=== PATIENT | female | born 1935 | race Caucasian/White ===

== ENCOUNTER 2020-09-06 12:15 | Inpatient (IN) ==
[2020-09-06] MEDS ORDERED: Ondansetron 4 MG/2 ML VIAL IVP PRN (16:00)
[2020-09-06] MEDS ORDERED: Naloxone 0.4 MG/ML INJ IVP PRN (16:00)
[2020-09-06] MEDS ORDERED: 0.9 % Sodium Chloride 1,000 ML IVC ONE (16:13)
[2020-09-06] MEDS ORDERED: 0.9 % Sodium Chloride 1,000 ML IVC SCH (16:15)
[2020-09-06] MEDS ORDERED: Piperacillin/Tazobactam 3.375 GM in 0.9 % Sodium Chloride Mini Bag 100 ML IVPB SCH (16:30)
[2020-09-06] MEDS ORDERED: *HR* Dextrose 50 % in Water (Vial) 50 ML VIAL IVP PRN (16:40)
[2020-09-06] MEDS ORDERED: Dextrose Gel 15 GM/37.5 ML TUBE PO PRN ×2 (16:40)
[2020-09-06] MEDS ORDERED: D5% in Water 1,000 ML IVC PRN (16:40)
[2020-09-06] MEDS ORDERED: Vancomycin 1,750 MG/517.5 ML IV.SOLN IVPB SCH (17:00)
[2020-09-06] MEDS ORDERED: Vancomycin 1 EACH in 0.9 % Sodium Chloride 250 ML IVPB PRN (20:00)
[2020-09-06 21:05] LABS: Red Cell Distribution Width 15.2 % (11.5-14.5)
[2020-09-06 21:06] LABS: Hematocrit 37.5 % (35.3-44.9); Hemoglobin 11.5 g/dL (11.5-15.4); Immature Granulocytes % 9.7 % (0-4); Immature Platelets 9.5 % (1.1-6.1); Lymphocytes # 1.1 K/mcL (0.6-4.6); Lymphocytes % 2.1 %; Mean Corpuscular HGB Conc 30.7 g/dL (31.6-35.5); Mean Corpuscular Hemoglobin 27.5 pg (28.0-33.3); Mean Corpuscular Volume 89.7 fL (83.0-100.0); Mean Platelet Volume 11.7 fL (9.4-12.4); Monocytes # 2.2 K/mcL (0.0-1.3); Monocytes % 4.1 %; Platelet Count 118 K/mcL (140-400); Red Blood Count 4.18 M/mcL (3.82-4.97); Segmented Neutrophils % 84.1 %
[2020-09-06 21:07] LABS: Neutrophils # 45.8 K/mcL (1.6-8.9)
[2020-09-06 21:08] LABS: White Blood Count 54.4 K/mcL (4.3-11.1)
[2020-09-06 21:19] LABS: Calcium 7.4 mg/dL (8.6-10.3); Potassium 5.4 mEq/L (3.5-5.1)
[2020-09-06 21:51] LABS: Platelet Estimate Normal (Normal)
[2020-09-06 23:11] LABS: Adenovirus F 40/41 PCR Not detected (Not detect); Astrovirus PCR Not detected (Not detect); C.difficile Toxin A/B Gene PCR Not detected (Not detect); Campylobacter by PCR Not detected (Not detect); Cryptosporidium by PCR Not detected (Not detect); Cyclospora cayetanensis PCR Not detected (Not detect); E. coli O157 by PCR Not detected (Not detect); Entamoeba histolytica PCR Not detected (Not detect); Enteroaggregative E.coli(EAEC) Not detected (Not detect); Enteropathogenic E.coli(EPEC) Not detected (Not detect); Enterotoxigenic E.coli (ETEC) Not detected (Not detect); Giardia lamblia PCR Not detected (Not detect); Norovirus GI/GII PCR Not detected (Not detect); Plesiomonas shigelloides PCR Not detected (Not detect); Rotavirus A PCR Not detected (Not detect); Salmonella PCR Not detected (Not detect); Sapovirus PCR Not detected (Not detect); Shig/EnteroinvasiveE coli EIEC Not detected (Not detect); Shigalike tox-prod E coli STEC Not detected (Not detect); Vibrio PCR Not detected (Not detect); Vibrio cholerae PCR Not detected (Not detect); Yersinia enterocolitica PCR Not detected (Not detect)
[2020-09-07] MEDS ORDERED: SODIUM ZIRCONIUM CYCLOSILICATE 5 GM POWD.PACK PO SCH (00:45)
[2020-09-07 00:46] LABS: Hemoglobin 11.4 g/dL (11.5-15.4)
[2020-09-07 00:48] LABS: Hematocrit 37.1 % (35.3-44.9); Immature Platelets 8.8 % (1.1-6.1); Mean Corpuscular HGB Conc 30.7 g/dL (31.6-35.5); Mean Corpuscular Hemoglobin 27.9 pg (28.0-33.3); Mean Corpuscular Volume 90.9 fL (83.0-100.0); Platelet Count 109 K/mcL (140-400); Red Blood Count 4.08 M/mcL (3.82-4.97); Red Cell Distribution Width 15.3 % (11.5-14.5)
[2020-09-07 01:05] LABS: Calcium 7.4 mg/dL (8.6-10.3); Magnesium 1.3 mg/dL (1.6-2.6); Phosphorous 4.5 mg/dL (2.7-4.5); Potassium 5.1 mEq/L (3.5-5.1)
[2020-09-07 01:11] LABS: Bilirubin,Urine Large (Negative); Blood,Urine Large (Negative); Clarity,Urine Turbid (Clear); Color,Urine Red (Yellow); Glucose,Urine (UA) 100 mg/dL (Normal); Ketones,Urine 15 mg/dL (Negative); Leukocyte Esterase,Urine Large (Negative); Nitrite,Urine Positive (Negative); Protein,Urine >=300 mg/dL (Neg-Trace); Urobilinogen,Urine Normal (Normal)
[2020-09-07 01:17] LABS: White Blood Count 52.9 K/mcL (4.3-11.1)
[2020-09-07 01:18] LABS: Large Platelets Present (Not Present); Lymphocytes # 2.1 K/mcL (0.6-4.6); Monocytes # 1.1 K/mcL (0.0-1.3); Neutrophils # 48.7 K/mcL (1.6-8.9); Platelet Estimate Slight Decrease (Normal)
[2020-09-07] MEDS: Calcium Gluconate 1gm/50mL 1 GM/50 ML BAG IVPB SCH ×2 (01:30→02:20)
[2020-09-07] MEDS: Sodium Bicarbonate 75 MEQ in 0.45 % Sodium Chloride 1,000 ML IVC SCH ×3 (01:33→16:59)
[2020-09-07 01:36] LABS: Bacteria,Urine Present per hpf (None-Few); Hyaline Casts,Urine Present per lpf (None Seen); RBC,Urine TNTC per hpf (0-3); Squamous Epithelial Cell,Urine Present per hpf (None-Few); WBC,Urine TNTC per hpf (0-3)
[2020-09-07] MEDS: Piperacillin/Tazobactam 3.375 GM in 0.9 % Sodium Chloride Mini Bag 100 ML IVPB SCH ×2 (06:57→16:59)
[2020-09-07 15:33] LABS: Uric Acid 9.3 mg/dL (2.3-7.6)
[2020-09-07 21:47] LABS: Sodium, Urine 78.5 mEq/L
[2020-09-08] MEDS: Sodium Bicarbonate 75 MEQ in 0.45 % Sodium Chloride 1,000 ML IVC SCH ×3 (02:21→16:27)
[2020-09-08 04:33] LABS: Creatine Kinase 5364 Units/L (30-223); Vancomycin,Random 16 mcg/mL
[2020-09-08] MEDS: Piperacillin/Tazobactam 3.375 GM in 0.9 % Sodium Chloride Mini Bag 100 ML IVPB SCH ×2 (04:55→17:05)
[2020-09-08 07:14] LABS: Hematocrit 33.3 % (35.3-44.9); Hemoglobin 10.7 g/dL (11.5-15.4); Immature Platelets 9.2 % (1.1-6.1); Mean Corpuscular HGB Conc 32.1 g/dL (31.6-35.5); Mean Corpuscular Hemoglobin 28.1 pg (28.0-33.3); Mean Corpuscular Volume 87.4 fL (83.0-100.0); Mean Platelet Volume 12.2 fL (9.4-12.4); Platelet Count 106 K/mcL (140-400); Red Blood Count 3.81 M/mcL (3.82-4.97); Red Cell Distribution Width 15.4 % (11.5-14.5)
[2020-09-08 07:23] LABS: VBG Ionized Calcium 0.95 mmol/L (1.15-1.35)
[2020-09-08 07:26] LABS: White Blood Count 52.2 K/mcL (4.3-11.1)
[2020-09-08 07:56] LABS: Magnesium 1.8 mg/dL (1.6-2.6); Phosphorous 4.6 mg/dL (2.7-4.5)
[2020-09-08] MEDS ORDERED: Vancomycin 500 MG in 0.9 % Sodium Chloride Mini Bag 100 ML IVPB ONE (08:00)
[2020-09-08 08:06] LABS: Calcium 7.6 mg/dL (8.6-10.3); Potassium 4.5 mEq/L (3.5-5.1)
[2020-09-08 08:13] LABS: Lymphocytes # 2.6 K/mcL (0.6-4.6); Neutrophils # 48.6 K/mcL (1.6-8.9); Platelet Estimate Decreased (Normal)
[2020-09-09] MEDS: Sodium Bicarbonate 75 MEQ in 0.45 % Sodium Chloride 1,000 ML IVC SCH ×4 (00:28→22:42)
[2020-09-09 01:50] LABS: Basophils % 0.2 %; Eosinophils % 0.2 %
[2020-09-09 01:52] LABS: Basophils # 0.1 K/mcL (0.0-0.2); Eosinophils # 0.1 K/mcL (0.0-0.6); Hematocrit 30.4 % (35.3-44.9); Hemoglobin 9.8 g/dL (11.5-15.4); Immature Granulocytes % 0.8 % (0-4); Lymphocytes # 2.2 K/mcL (0.6-4.6); Mean Corpuscular HGB Conc 32.2 g/dL (31.6-35.5); Mean Corpuscular Hemoglobin 27.8 pg (28.0-33.3); Mean Corpuscular Volume 86.4 fL (83.0-100.0); Mean Platelet Volume 11.5 fL (9.4-12.4); Monocytes # 1.2 K/mcL (0.0-1.3); Monocytes % 2.8 %; Platelet Count 106 K/mcL (140-400); Red Blood Count 3.52 M/mcL (3.82-4.97); Red Cell Distribution Width 15.5 % (11.5-14.5)
[2020-09-09 01:59] LABS: Neutrophils # 39.2 K/mcL (1.6-8.9)
[2020-09-09 02:01] LABS: White Blood Count 43.1 K/mcL (4.3-11.1)
[2020-09-09 02:12] LABS: Calcium 7.1 mg/dL (8.6-10.3); Magnesium 1.7 mg/dL (1.6-2.6); Phosphorous 4.2 mg/dL (2.7-4.5); Potassium 4.3 mEq/L (3.5-5.1)
[2020-09-09 05:23] LABS: Platelet Estimate Slight Decrease (Normal)
[2020-09-09] MEDS: Piperacillin/Tazobactam 3.375 GM in 0.9 % Sodium Chloride Mini Bag 100 ML IVPB SCH ×2 (05:41→16:43)
[2020-09-09] MEDS ORDERED: Vancomycin 500 MG in 0.9 % Sodium Chloride Mini Bag 100 ML IVPB ONE (08:00)
[2020-09-10 03:15] LABS: VBG Ionized Calcium 0.89 mmol/L (1.15-1.35)
[2020-09-10 03:17] LABS: Basophils % 0.2 %; Hemoglobin 8.9 g/dL (11.5-15.4); Red Cell Distribution Width 15.1 % (11.5-14.5)
[2020-09-10 03:19] LABS: Eosinophils # 0.5 K/mcL (0.0-0.6); Hematocrit 27.6 % (35.3-44.9); Immature Granulocytes % 1.2 % (0-4); Immature Platelets 6.6 % (1.1-6.1); Lymphocytes # 2.4 K/mcL (0.6-4.6); Lymphocytes % 14.5 %; Mean Corpuscular HGB Conc 32.2 g/dL (31.6-35.5); Mean Corpuscular Hemoglobin 27.3 pg (28.0-33.3); Mean Corpuscular Volume 84.7 fL (83.0-100.0); Mean Platelet Volume 11.1 fL (9.4-12.4); Monocytes # 1.2 K/mcL (0.0-1.3); Monocytes % 7.3 %; Neutrophils # 12.4 K/mcL (1.6-8.9); Nucleated Red Blood Cells 0.2 /100 WBC (0); Red Blood Count 3.26 M/mcL (3.82-4.97); Segmented Neutrophils % 73.8 %; White Blood Count 16.8 K/mcL (4.3-11.1)
[2020-09-10 03:23] LABS: Platelet Count 98 K/mcL (140-400)
[2020-09-10 03:30] LABS: Calcium 6.4 mg/dL (8.6-10.3); Magnesium 1.5 mg/dL (1.6-2.6); Potassium 3.5 mEq/L (3.5-5.1)
[2020-09-10] MEDS: Sodium Bicarbonate 75 MEQ in 0.45 % Sodium Chloride 1,000 ML IVC SCH (06:04)
[2020-09-10] MEDS: Piperacillin/Tazobactam 3.375 GM in 0.9 % Sodium Chloride Mini Bag 100 ML IVPB SCH ×2 (06:11→17:51)
[2020-09-10] MEDS ORDERED: Vancomycin 500 MG in 0.9 % Sodium Chloride Mini Bag 100 ML IVPB ONE (08:00)
[2020-09-10 09:10] LABS: Immature Platelets 8.5 % (1.1-6.1); Mean Corpuscular Volume 84.8 fL (83.0-100.0)
[2020-09-10 09:12] LABS: INR 1.2; Prothrombin Time 14.3 Seconds (9.4-12.1)
[2020-09-10 09:15] LABS: Basophils # 0.1 K/mcL (0.0-0.2); Basophils % 0.3 %; Eosinophils # 0.6 K/mcL (0.0-0.6); Eosinophils % 3.3 %; Hematocrit 32.4 % (35.3-44.9); Hemoglobin 10.3 g/dL (11.5-15.4); Immature Granulocytes % 1.7 % (0-4); Lymphocytes # 3.1 K/mcL (0.6-4.6); Lymphocytes % 16.3 %; Mean Corpuscular HGB Conc 31.8 g/dL (31.6-35.5); Mean Platelet Volume 12.1 fL (9.4-12.4); Monocytes # 1.6 K/mcL (0.0-1.3); Monocytes % 8.3 %; Neutrophils # 13.1 K/mcL (1.6-8.9); Nucleated Red Blood Cells 0.1 /100 WBC (0); Platelet Count 114 K/mcL (140-400); Red Blood Count 3.82 M/mcL (3.82-4.97); Red Cell Distribution Width 15.4 % (11.5-14.5); Segmented Neutrophils % 70.1 %; White Blood Count 18.7 K/mcL (4.3-11.1)
[2020-09-10] MEDS ORDERED: SODIUM CHLORIDE 0.9% IVPB ONE (10:02)
[2020-09-10] MEDS ORDERED: DESMOPRESSIN ACETATE IVPB ONE (10:02)
[2020-09-10] MEDS ORDERED: 0.9 % Sodium Chloride 1,000 ML ONE ×2 (10:04→15:40)
[2020-09-10] MEDS ORDERED: 0.9 % Sodium Chloride 250 ML ONE (10:17)
[2020-09-10] MEDS ORDERED: *HR* Rocuronium Bromide 50 MG/5 ML VIAL ONE (10:24)
[2020-09-10] MEDS ORDERED: EPHEDrine 50 MG/ML VIAL ONE (10:25)
[2020-09-10] MEDS ORDERED: *HR* Midazolam HCl 2 MG/2 ML VIAL ONE (10:27)
[2020-09-10] MEDS ORDERED: Tranexamic Acid 1,000 MG/10 ML VIAL ONE (10:38)
[2020-09-10] MEDS ORDERED: Oxymetazoline Nasal SPRAY BOTTLE NS ONE (10:47)
[2020-09-10] MEDS ORDERED: Lidocaine/EPI 1:100k 1% 50 ML VIAL ONE (10:47)
[2020-09-10] MEDS ORDERED: *HR* EPINEPHrine 30 MG/30 ML MDV ONE (10:47)
[2020-09-10 10:59] LABS: Fibrinogen 432 mg/dL (169-393)
[2020-09-10 11:00] LABS: D-Dimer 3664 ng/mLFEU (0-500)
[2020-09-10] MEDS ORDERED: *HR* Midazolam HCl 5 MG/5 ML VIAL IVP ONE (11:48)
[2020-09-10] MEDS ORDERED: *HR* Etomidate 20 MG/10 ML AMPUL IVP ONE (11:48)
[2020-09-10 12:58] LABS: ABG Base Excess -2 mEq/L (-2 to 3); ABG Chloride 108 mEq/L (98-107); ABG Glucose 119 mg/dL (60-95); ABG HCO3 22 mEq/L (21-27); ABG Ionized Calcium 0.99 mmol/L (1.15-1.35); ABG Oxygen Saturation 91 % (95-98); ABG PCO2 33 mmHg (35-45); ABG PH 7.43 pH Units (7.32-7.45); ABG PO2 58 mmHg (85-104); ABG TCO2 23 mEq/L (20-26)
[2020-09-10] MEDS ORDERED: *HR* FentaNYL (PF) 100 MCG/2 ML VIAL ONE (13:07)
[2020-09-10] MEDS ORDERED: Artificial Tears SOLN 15 ML BOTTLE BOTH EYES PRN (13:22)
[2020-09-10] MEDS: FentaNYL (PF) 1,000 MCG/100 ML IV.SOLN IVC SCH (13:45)
[2020-09-10] MEDS: 0.9 % Sodium Chloride 1,000 ML IVC SCH (14:08)
[2020-09-10] MEDS: Calcium Gluconate 1gm/50mL 1 GM/50 ML BAG IVPB SCH ×2 (14:08→14:37)
[2020-09-10 14:15] LABS: VBG Ionized Calcium 0.91 mmol/L (1.15-1.35)
[2020-09-10 14:28] LABS: Basophils % 0.2 %; Eosinophils # 0.4 K/mcL (0.0-0.6); Eosinophils % 2.1 %; Hematocrit 30.4 % (35.3-44.9); Hemoglobin 10.2 g/dL (11.5-15.4); Immature Granulocytes % 3.4 % (0-4); Lymphocytes # 2.8 K/mcL (0.6-4.6); Lymphocytes % 14.9 %; Mean Corpuscular HGB Conc 33.6 g/dL (31.6-35.5); Mean Corpuscular Hemoglobin 28.7 pg (28.0-33.3); Mean Corpuscular Volume 85.4 fL (83.0-100.0); Mean Platelet Volume 12.1 fL (9.4-12.4); Monocytes % 10.6 %; Neutrophils # 12.9 K/mcL (1.6-8.9); Nucleated Red Blood Cells 0.1 /100 WBC (0); Platelet Count 102 K/mcL (140-400); Red Blood Count 3.56 M/mcL (3.82-4.97); Red Cell Distribution Width 14.6 % (11.5-14.5); Segmented Neutrophils % 68.8 %; White Blood Count 18.8 K/mcL (4.3-11.1)
[2020-09-10 14:33] LABS: Albumin 2.3 g/dL (3.5-5.7); Bilirubin,Direct 0.1 mg/dL (0.0-0.2); Bilirubin,Indirect 0.6 mg/dL (0.0-1.0); Bilirubin,Total 0.7 mg/dL (0.3-1.0); Calcium 7.1 mg/dL (8.6-10.3); Globulin 2.2 g/dL (2.4-3.5); Magnesium 1.6 mg/dL (1.6-2.6); Phosphorous 4.5 mg/dL (2.7-4.5); Potassium 3.7 mEq/L (3.5-5.1); Total Protein 4.5 g/dL (6.4-8.9)
[2020-09-10 14:36] LABS: INR 1.3; Prothrombin Time 15.3 Seconds (9.4-12.1)
[2020-09-10 14:44] LABS: Activated Partial Thrombo Time 18.9 Seconds (26.0-36.0)
[2020-09-10] MEDS: Norepinephrine 4 MG/254 ML IV.SOLN IVC SCH ×2 (15:51→22:50)
[2020-09-10] MEDS: Artificial Tears SOLN 15 ML BOTTLE BOTH EYES SCH ×3 (16:55→23:52)
[2020-09-10 16:59] LABS: ABG Base Excess -4 mEq/L (-2 to 3); ABG HCO3 23 mEq/L (21-27); ABG Oxygen Saturation 92 % (95-98); ABG PCO2 49 mmHg (35-45); ABG PH 7.28 pH Units (7.32-7.45); ABG PO2 74 mmHg (85-104); ABG TCO2 25 mEq/L (20-26); Blood Gas Modality ASSIST CONTROL; Blood Gas VT 400 cc
[2020-09-10] MEDS: Oxymetazoline Nasal SPRAY BOTTLE NS PRN ×3 (17:50→22:51)
[2020-09-10] MEDS: Oxymetazoline Nasal SPRAY BOTTLE NS SCH ×2 (17:51→23:52)
[2020-09-10] MEDS ORDERED: Famotidine 20 MG/2 ML VIAL IVP SCH (18:00)
[2020-09-10 20:06] LABS: VBG Ionized Calcium 1.02 mmol/L (1.15-1.35)
[2020-09-10] MEDS: Chlorhexidine Rinse 15 ML MOUTHWASH MM SCH (20:11)
[2020-09-10 20:16] LABS: Basophils # 0.1 K/mcL (0.0-0.2); Basophils % 0.5 %; Eosinophils # 0.5 K/mcL (0.0-0.6); Eosinophils % 2.3 %; Hematocrit 29.8 % (35.3-44.9); Hemoglobin 9.5 g/dL (11.5-15.4); Immature Granulocytes % 4.8 % (0-4); Lymphocytes # 3.2 K/mcL (0.6-4.6); Lymphocytes % 15.9 %; Mean Corpuscular HGB Conc 31.9 g/dL (31.6-35.5); Mean Corpuscular Hemoglobin 27.4 pg (28.0-33.3); Mean Corpuscular Volume 85.9 fL (83.0-100.0); Mean Platelet Volume 11.8 fL (9.4-12.4); Monocytes # 2.2 K/mcL (0.0-1.3); Monocytes % 10.9 %; Neutrophils # 13.4 K/mcL (1.6-8.9); Nucleated Red Blood Cells 0.1 /100 WBC (0); Platelet Count 110 K/mcL (140-400); Red Blood Count 3.47 M/mcL (3.82-4.97); Segmented Neutrophils % 65.6 %; White Blood Count 20.4 K/mcL (4.3-11.1)
[2020-09-10 20:28] LABS: Calcium 7.1 mg/dL (8.6-10.3); Potassium 3.9 mEq/L (3.5-5.1)
[2020-09-10] MEDS: Calcium Gluconate 1gm/50mL 1 GM/50 ML BAG IVPB PRN (21:47)
[2020-09-11 02:21] LABS: Basophils # 0.1 K/mcL (0.0-0.2); Basophils % 0.5 %; Eosinophils # 0.6 K/mcL (0.0-0.6); Hematocrit 29.8 % (35.3-44.9); Hemoglobin 9.5 g/dL (11.5-15.4); Lymphocytes # 3.5 K/mcL (0.6-4.6); Lymphocytes % 16.9 %; Mean Corpuscular HGB Conc 31.9 g/dL (31.6-35.5); Mean Corpuscular Volume 87.9 fL (83.0-100.0); Mean Platelet Volume 11.9 fL (9.4-12.4); Monocytes # 2.4 K/mcL (0.0-1.3); Monocytes % 11.4 %; Neutrophils # 12.9 K/mcL (1.6-8.9); Nucleated Red Blood Cells 0.1 /100 WBC (0); Platelet Count 125 K/mcL (140-400); Red Blood Count 3.39 M/mcL (3.82-4.97); Red Cell Distribution Width 15.3 % (11.5-14.5); Segmented Neutrophils % 62.2 %; White Blood Count 20.8 K/mcL (4.3-11.1)
[2020-09-11] MEDS: FentaNYL (PF) 1,000 MCG/100 ML IV.SOLN IVC SCH ×2 (02:36→15:55)
[2020-09-11] MEDS: 0.9 % Sodium Chloride 1,000 ML IVC SCH ×2 (02:40→16:40)
[2020-09-11 02:41] LABS: ABG Ionized Calcium 1.05 mmol/L (1.15-1.35)
[2020-09-11 02:43] LABS: Calcium 7.4 mg/dL (8.6-10.3); Phosphorous 5.9 mg/dL (2.7-4.5); Potassium 4.2 mEq/L (3.5-5.1)
[2020-09-11] MEDS: Norepinephrine 4 MG/254 ML IV.SOLN IVC SCH ×5 (03:18→22:01)
[2020-09-11] MEDS: Artificial Tears SOLN 15 ML BOTTLE BOTH EYES SCH ×6 (03:19→23:25)
[2020-09-11 03:49] LABS: ABG Base Excess -8 mEq/L (-2 to 3); ABG HCO3 20 mEq/L (21-27); ABG Oxygen Saturation 97 % (95-98); ABG PCO2 46 mmHg (35-45); ABG PH 7.24 pH Units (7.32-7.45); ABG PO2 112 mmHg (85-104); ABG TCO2 21 mEq/L (20-26); Blood Gas Modality AF; Blood Gas VT 400 cc
[2020-09-11] MEDS: Calcium Gluconate 1gm/50mL 1 GM/50 ML BAG IVPB PRN ×2 (04:12→18:29)
[2020-09-11] MEDS: Piperacillin/Tazobactam 3.375 GM in 0.9 % Sodium Chloride Mini Bag 100 ML IVPB SCH ×2 (05:22→17:58)
[2020-09-11] MEDS: Pantoprazole 40 MG VIAL IVP SCH ×2 (05:23→17:58)
[2020-09-11] MEDS: Oxymetazoline Nasal SPRAY BOTTLE NS SCH ×4 (05:24→23:39)
[2020-09-11] MEDS: Vancomycin 500 MG in 0.9 % Sodium Chloride Mini Bag 100 ML IVPB SCH (08:49)
[2020-09-11] MEDS: Chlorhexidine Rinse 15 ML MOUTHWASH MM SCH ×2 (08:49→20:39)
[2020-09-11] MEDS: Sodium Bicarbonate 75 MEQ in 0.45 % Sodium Chloride 1,000 ML IVC SCH (09:27)
[2020-09-11 11:23] LABS: Basophils # 0.1 K/mcL (0.0-0.2); Basophils % 0.4 %; Eosinophils # 0.6 K/mcL (0.0-0.6); Hematocrit 27.9 % (35.3-44.9); Hemoglobin 8.8 g/dL (11.5-15.4); Immature Granulocytes % 4.6 % (0-4); Lymphocytes # 2.7 K/mcL (0.6-4.6); Lymphocytes % 13.5 %; Mean Corpuscular HGB Conc 31.5 g/dL (31.6-35.5); Mean Corpuscular Hemoglobin 27.9 pg (28.0-33.3); Mean Corpuscular Volume 88.6 fL (83.0-100.0); Mean Platelet Volume 11.3 fL (9.4-12.4); Monocytes # 2.4 K/mcL (0.0-1.3); Neutrophils # 13.4 K/mcL (1.6-8.9); Platelet Count 130 K/mcL (140-400); Red Blood Count 3.15 M/mcL (3.82-4.97); Red Cell Distribution Width 15.6 % (11.5-14.5); Segmented Neutrophils % 66.5 %; White Blood Count 20.1 K/mcL (4.3-11.1)
[2020-09-11 11:26] LABS: ABG Ionized Calcium 1.03 mmol/L (1.15-1.35)
[2020-09-11 11:57] LABS: % Iron Saturation 13 % (15-50); Iron 28 mcg/dL (50-170); Lactate Dehydrogenase 175 Units/L (140-271); Transferrin 151 mg/dL (203-362)
[2020-09-11 12:01] LABS: Ferritin 186 ng/mL (10-120)
[2020-09-11 12:06] LABS: Folate 12.8 ng/mL (3.0-16.0)
[2020-09-11 12:36] LABS: Vitamin B12 > 1500 pg/mL (250-1100)
[2020-09-11 15:37] LABS: Hematocrit 28.7 % (35.3-44.9)
[2020-09-11 15:49] LABS: ABG Ionized Calcium 1.07 mmol/L (1.15-1.35)
[2020-09-11 15:56] LABS: Calcium 7.6 mg/dL (8.6-10.3); Magnesium 2.1 mg/dL (1.6-2.6); Phosphorous 6.4 mg/dL (2.7-4.5); Potassium 4.3 mEq/L (3.5-5.1)
[2020-09-11 21:52] LABS: Hematocrit 27.5 % (35.3-44.9); Hemoglobin 8.7 g/dL (11.5-15.4)
[2020-09-11] MEDS: Vasopressin 40 UNIT in D5% in Water 100 ML IVC SCH (22:03)
[2020-09-11] MEDS: Oxymetazoline Nasal SPRAY BOTTLE NS PRN (23:26)
[2020-09-12] MEDS: FentaNYL (PF) 1,000 MCG/100 ML IV.SOLN IVC SCH ×3 (01:55→21:06)
[2020-09-12] MEDS: Artificial Tears SOLN 15 ML BOTTLE BOTH EYES SCH ×6 (03:16→23:05)
[2020-09-12] MEDS: Norepinephrine 4 MG/254 ML IV.SOLN IVC SCH ×4 (03:29→20:12)
[2020-09-12 03:44] LABS: Basophils # 0.1 K/mcL (0.0-0.2); Basophils % 0.5 %; Eosinophils # 0.8 K/mcL (0.0-0.6); Eosinophils % 3.5 %; Hematocrit 27.9 % (35.3-44.9); Hemoglobin 8.6 g/dL (11.5-15.4); Immature Granulocytes % 4.6 % (0-4); Lymphocytes # 2.9 K/mcL (0.6-4.6); Lymphocytes % 12.6 %; Mean Corpuscular HGB Conc 30.8 g/dL (31.6-35.5); Mean Corpuscular Hemoglobin 27.8 pg (28.0-33.3); Mean Corpuscular Volume 90.3 fL (83.0-100.0); Mean Platelet Volume 11.6 fL (9.4-12.4); Monocytes # 2.5 K/mcL (0.0-1.3); Monocytes % 10.8 %; Neutrophils # 15.8 K/mcL (1.6-8.9); Platelet Count 151 K/mcL (140-400); Red Blood Count 3.09 M/mcL (3.82-4.97); Red Cell Distribution Width 15.9 % (11.5-14.5); White Blood Count 23.2 K/mcL (4.3-11.1)
[2020-09-12 03:57] LABS: INR 1.2; Phosphorous 6.8 mg/dL (2.7-4.5); Prothrombin Time 13.8 Seconds (9.4-12.1)
[2020-09-12 03:59] LABS: Activated Partial Thrombo Time 21.7 Seconds (26.0-36.0); Albumin 2.4 g/dL (3.5-5.7); Bilirubin,Direct 0.2 mg/dL (0.0-0.2); Bilirubin,Indirect 0.2 mg/dL (0.0-1.0); Bilirubin,Total 0.4 mg/dL (0.3-1.0); Calcium 7.7 mg/dL (8.6-10.3); Globulin 2.3 g/dL (2.4-3.5); Potassium 4.3 mEq/L (3.5-5.1); Total Protein 4.7 g/dL (6.4-8.9)
[2020-09-12 04:41] LABS: ABG Base Excess -11 mEq/L (-2 to 3); ABG HCO3 16 mEq/L (21-27); ABG Oxygen Saturation 99 % (95-98); ABG PCO2 38 mmHg (35-45); ABG PH 7.22 pH Units (7.32-7.45); ABG PO2 157 mmHg (85-104); ABG TCO2 17 mEq/L (20-26); Blood Gas VT 400 cc
[2020-09-12] MEDS: Piperacillin/Tazobactam 3.375 GM in 0.9 % Sodium Chloride Mini Bag 100 ML IVPB SCH ×2 (05:04→17:00)
[2020-09-12] MEDS: Pantoprazole 40 MG VIAL IVP SCH ×2 (05:04→17:00)
[2020-09-12] MEDS: 0.9 % Sodium Chloride 1,000 ML IVC SCH (07:33)
[2020-09-12] MEDS: Vancomycin 500 MG in 0.9 % Sodium Chloride Mini Bag 100 ML IVPB SCH (07:39)
[2020-09-12] MEDS: Chlorhexidine Rinse 15 ML MOUTHWASH MM SCH ×2 (07:39→20:13)
[2020-09-12] MEDS ORDERED: Heparin 1,000 UNITS/500 mL 500 ML ONE (09:15)
[2020-09-12] MEDS: Budesonide/Formoterol 160/4.5 1 PUFF INH IH SCH ×2 (09:34→21:37)
[2020-09-12] MEDS ORDERED: *HR* Heparin 5,000 UNIT/ML VIAL ONE (10:53)
[2020-09-12] MEDS ORDERED: *HR* Heparin 5,000 UNIT/ML VIAL IVP PRN ×2 (11:39→12:35)
[2020-09-12 13:19] LABS: Hepatitis B Surface Antibody < 3.10 mIU/mL
[2020-09-12 13:30] LABS: Hepatitis B Surface Antigen Nonreactive (Nonreactive)
[2020-09-12] MEDS: PrismaSATE BGK 4/2.5 5,000 ML CRRT SCH ×6 (14:52→23:05)
[2020-09-12] MEDS: Vasopressin 40 UNIT in D5% in Water 100 ML IVC SCH (18:16)
[2020-09-12] MEDS ORDERED: 0.9 % Sodium Chloride 1,000 ML ONE (18:57)
[2020-09-13] MEDS: PrismaSATE BGK 4/2.5 5,000 ML CRRT SCH ×11 (00:33→23:48)
[2020-09-13] MEDS: Norepinephrine 4 MG/254 ML IV.SOLN IVC SCH ×3 (01:12→14:00)
[2020-09-13] MEDS: Piperacillin/Tazobactam 3.375 GM in 0.9 % Sodium Chloride Mini Bag 100 ML IVPB SCH ×3 (01:13→18:00)
[2020-09-13 03:22] LABS: Basophils % 0.2 %; Eosinophils # 0.5 K/mcL (0.0-0.6); Eosinophils % 2.8 %; Hemoglobin 7.7 g/dL (11.5-15.4); Immature Granulocytes % 3.1 % (0-4); Lymphocytes # 1.4 K/mcL (0.6-4.6); Lymphocytes % 8.3 %; Mean Corpuscular HGB Conc 32.1 g/dL (31.6-35.5); Mean Corpuscular Hemoglobin 28.2 pg (28.0-33.3); Mean Corpuscular Volume 87.9 fL (83.0-100.0); Mean Platelet Volume 10.9 fL (9.4-12.4); Monocytes # 1.3 K/mcL (0.0-1.3); Monocytes % 7.8 %; Neutrophils # 12.9 K/mcL (1.6-8.9); Platelet Count 148 K/mcL (140-400); Red Blood Count 2.73 M/mcL (3.82-4.97); Red Cell Distribution Width 15.8 % (11.5-14.5); Segmented Neutrophils % 77.8 %; White Blood Count 16.6 K/mcL (4.3-11.1)
[2020-09-13] MEDS: Artificial Tears SOLN 15 ML BOTTLE BOTH EYES SCH ×6 (03:30→23:22)
[2020-09-13 03:33] LABS: VBG Ionized Calcium 1.06 mmol/L (1.15-1.35)
[2020-09-13 03:41] LABS: Calcium 7.3 mg/dL (8.6-10.3); Potassium 4.2 mEq/L (3.5-5.1)
[2020-09-13 03:42] LABS: Phosphorous 4.3 mg/dL (2.7-4.5)
[2020-09-13] MEDS: Calcium Gluconate 1gm/50mL 1 GM/50 ML BAG IVPB PRN ×5 (04:10→22:22)
[2020-09-13] MEDS ORDERED: Calcium Gluconate 1gm/50mL 1 GM/50 ML BAG IVPB ONE (04:57)
[2020-09-13 04:58] LABS: ABG Base Excess -3 mEq/L (-2 to 3); ABG HCO3 22 mEq/L (21-27); ABG Oxygen Saturation 99 % (95-98); ABG PCO2 43 mmHg (35-45); ABG PH 7.33 pH Units (7.32-7.45); ABG PO2 154 mmHg (85-104); ABG TCO2 24 mEq/L (20-26); Blood Gas Modality ASSIST CONTROL; Blood Gas VT 400 cc
[2020-09-13] MEDS: Pantoprazole 40 MG VIAL IVP SCH ×2 (05:10→18:09)
[2020-09-13] MEDS ORDERED: 0.9 % Sodium Chloride 2,000 ML ONE ×3 (06:33→20:11)
[2020-09-13] MEDS ORDERED: 0.9 % Sodium Chloride 1,000 ML ONE (06:50)
[2020-09-13 07:00] LABS: Albumin 2.3 g/dL (3.5-5.7); Calcium 7.9 mg/dL (8.6-10.3); Phosphorous 3.8 mg/dL (2.7-4.5); Potassium 4.3 mEq/L (3.5-5.1)
[2020-09-13] MEDS: Budesonide/Formoterol 160/4.5 1 PUFF INH IH SCH ×2 (07:22→19:45)
[2020-09-13] MEDS: Chlorhexidine Rinse 15 ML MOUTHWASH MM SCH ×2 (07:57→21:25)
[2020-09-13] MEDS: FentaNYL (PF) 1,000 MCG/100 ML IV.SOLN IVC SCH ×2 (08:00→18:50)
[2020-09-13] MEDS ORDERED: Calcium Gluconate 1gm/50mL 1 GM/50 ML BAG IVPB PRN (08:47)
[2020-09-13] MEDS ORDERED: PrismaSATE BGK 2/0 5,000 ML CRRT SCH ×2 (09:00)
[2020-09-13] MEDS: Albumin 25% 25gram/100mL 25 GM/100 ML IV.SOLN IVPB SCH ×4 (10:34→14:00)
[2020-09-13] MEDS ORDERED: Albumin 25% 25gram/100mL 50 GM/200 ML IV.SOLN ONE (12:17)
[2020-09-13] MEDS: PrismaSATE BGK 2/0 5,000 ML CRRT SCH ×6 (12:40→23:09)
[2020-09-13] MEDS: Calcium Chloride 4,000 MG in 0.9 % Sodium Chloride 1,000 ML CRRT SCH (12:41)
[2020-09-13 12:48] LABS: VBG Ionized Calcium 1.02 mmol/L (1.15-1.35)
[2020-09-13 12:55] LABS: INR 1.2; Prothrombin Time 13.9 Seconds (9.4-12.1)
[2020-09-13 12:58] LABS: Activated Partial Thrombo Time 22.8 Seconds (26.0-36.0)
[2020-09-13 14:54] LABS: VBG Ionized Calcium 0.83 mmol/L (1.15-1.35)
[2020-09-13 17:44] LABS: VBG Ionized Calcium 0.88 mmol/L (1.15-1.35)
[2020-09-13] MEDS: Norepinephrine 8 MG in 0.9 % Sodium Chloride 250 ML IVC SCH (19:33)
[2020-09-13] MEDS: Vasopressin 40 UNIT in D5% in Water 100 ML IVC SCH (19:50)
[2020-09-13 19:59] LABS: VBG Ionized Calcium 0.82 mmol/L (1.15-1.35)
[2020-09-13 23:51] LABS: VBG Ionized Calcium 0.85 mmol/L (1.15-1.35)
[2020-09-14] MEDS: Calcium Gluconate 1gm/50mL 1 GM/50 ML BAG IVPB PRN ×4 (00:13→21:09)
[2020-09-14] MEDS: PrismaSATE BGK 2/0 5,000 ML CRRT SCH ×10 (01:35→22:55)
[2020-09-14] MEDS ORDERED: 0.9 % Sodium Chloride 2,000 ML ONE (01:48)
[2020-09-14] MEDS: Piperacillin/Tazobactam 3.375 GM in 0.9 % Sodium Chloride Mini Bag 100 ML IVPB SCH ×3 (02:06→17:19)
[2020-09-14 02:21] LABS: VBG Ionized Calcium 1.11 mmol/L (1.15-1.35)
[2020-09-14] MEDS: Calcium Chloride 4,000 MG in 0.9 % Sodium Chloride 1,000 ML CRRT SCH ×4 (02:25→20:59)
[2020-09-14] MEDS: Artificial Tears SOLN 15 ML BOTTLE BOTH EYES SCH ×6 (03:30→23:20)
[2020-09-14 03:52] LABS: VBG Ionized Calcium 0.85 mmol/L (1.15-1.35)
[2020-09-14 03:54] LABS: Basophils % 0.1 %; Eosinophils # 0.5 K/mcL (0.0-0.6); Eosinophils % 3.5 %; Hematocrit 19.4 % (35.3-44.9); Immature Granulocytes % 2.2 % (0-4); Lymphocytes # 1.7 K/mcL (0.6-4.6); Lymphocytes % 12.3 %; Mean Corpuscular HGB Conc 31.4 g/dL (31.6-35.5); Mean Corpuscular Hemoglobin 27.6 pg (28.0-33.3); Mean Corpuscular Volume 87.8 fL (83.0-100.0); Mean Platelet Volume 10.7 fL (9.4-12.4); Monocytes # 1.1 K/mcL (0.0-1.3); Monocytes % 7.8 %; Platelet Count 149 K/mcL (140-400); Red Blood Count 2.21 M/mcL (3.82-4.97); Red Cell Distribution Width 15.7 % (11.5-14.5); Segmented Neutrophils % 74.1 %; White Blood Count 13.4 K/mcL (4.3-11.1)
[2020-09-14 04:04] LABS: Hemoglobin 6.1 g/dL (11.5-15.4)
[2020-09-14 04:10] LABS: Magnesium 1.8 mg/dL (1.6-2.6); Phosphorous 2.4 mg/dL (2.7-4.5)
[2020-09-14 04:11] LABS: Calcium 7.6 mg/dL (8.6-10.3); Potassium 3.5 mEq/L (3.5-5.1)
[2020-09-14] MEDS: FentaNYL (PF) 1,000 MCG/100 ML IV.SOLN IVC SCH ×3 (04:12→23:00)
[2020-09-14 04:30] LABS: ABG Base Excess -1 mEq/L (-2 to 3); ABG HCO3 25 mEq/L (21-27); ABG Oxygen Saturation 99 % (95-98); ABG PCO2 44 mmHg (35-45); ABG PH 7.35 pH Units (7.32-7.45); ABG PO2 146 mmHg (85-104); ABG TCO2 26 mEq/L (20-26); Blood Gas Modality ASSIST CONTROL; Blood Gas VT 400 cc
[2020-09-14] MEDS: PrismaSATE BGK 4/2.5 5,000 ML CRRT SCH ×4 (04:44→20:11)
[2020-09-14] MEDS: Potassium Chloride 40 MEQ/200 ML BAG IVPB PRN (04:57)
[2020-09-14] MEDS: Norepinephrine 8 MG in 0.9 % Sodium Chloride 250 ML IVC SCH (04:58)
[2020-09-14] MEDS: Pantoprazole 40 MG VIAL IVP SCH ×2 (05:15→17:19)
[2020-09-14] MEDS: Potassium Phosphate 44 MEQ in 0.9 % Sodium Chloride 250 ML IVPB PRN (05:16)
[2020-09-14 06:20] LABS: VBG Ionized Calcium 0.85 mmol/L (1.15-1.35)
[2020-09-14] MEDS ORDERED: 0.9 % Sodium Chloride 250 ML ONE (06:49)
[2020-09-14] MEDS: Budesonide/Formoterol 160/4.5 1 PUFF INH IH SCH ×2 (08:17→19:59)
[2020-09-14 08:37] LABS: VBG Ionized Calcium 1.09 mmol/L (1.15-1.35)
[2020-09-14] MEDS: Chlorhexidine Rinse 15 ML MOUTHWASH MM SCH ×2 (09:05→19:45)
[2020-09-14] MEDS: Vancomycin 1,250 MG/262.5 ML IV.SOLN IVPB SCH (10:39)
[2020-09-14 10:44] LABS: VBG Ionized Calcium 1.03 mmol/L (1.15-1.35)
[2020-09-14 12:15] LABS: VBG Ionized Calcium 1.07 mmol/L (1.15-1.35)
[2020-09-14 12:35] LABS: Magnesium 1.9 mg/dL (1.6-2.6); Phosphorous 3.6 mg/dL (2.7-4.5); Potassium 4.1 mEq/L (3.5-5.1)
[2020-09-14 13:34] LABS: Albumin 2.8 g/dL (3.5-5.7); Albumin/Globulin Ratio 1.5 (1.1-2.2); Bilirubin,Direct 0.4 mg/dL (0.0-0.2); Bilirubin,Indirect 0.5 mg/dL (0.0-1.0); Bilirubin,Total 0.9 mg/dL (0.3-1.0); Globulin 1.9 g/dL (2.4-3.5); Total Protein 4.7 g/dL (6.4-8.9)
[2020-09-14 14:45] LABS: VBG Ionized Calcium 1.07 mmol/L (1.15-1.35)
[2020-09-14 16:45] LABS: VBG Ionized Calcium 1.08 mmol/L (1.15-1.35)
[2020-09-14 18:36] LABS: VBG Ionized Calcium 1.12 mmol/L (1.15-1.35)
[2020-09-14 20:08] LABS: VBG Ionized Calcium 0.86 mmol/L (1.15-1.35)
[2020-09-14 20:26] LABS: Magnesium 1.9 mg/dL (1.6-2.6); Phosphorous 2.6 mg/dL (2.7-4.5); Potassium 3.5 mEq/L (3.5-5.1)
[2020-09-14] MEDS ORDERED: Potassium Chloride Elixir 20 MEQ/15 ML UDC GTUBE ONE (21:07)
[2020-09-14] MEDS: Insulin LISPRO 300 UNITS/3 ML VIAL SUBQ SCH (23:20)
[2020-09-14 23:41] LABS: VBG Ionized Calcium 1.22 mmol/L (1.15-1.35)
[2020-09-15] MEDS: Calcium Chloride 4,000 MG in 0.9 % Sodium Chloride 1,000 ML CRRT SCH ×6 (01:05→22:58)
[2020-09-15] MEDS: PrismaSATE BGK 4/2.5 5,000 ML CRRT SCH ×5 (01:08→22:13)
[2020-09-15] MEDS: PrismaSATE BGK 2/0 5,000 ML CRRT SCH ×9 (01:09→22:13)
[2020-09-15] MEDS ORDERED: 0.9 % Sodium Chloride 1,000 ML ONE ×2 (03:07→13:20)
[2020-09-15] MEDS: Piperacillin/Tazobactam 3.375 GM in 0.9 % Sodium Chloride Mini Bag 100 ML IVPB SCH ×3 (03:09→17:59)
[2020-09-15] MEDS: Artificial Tears SOLN 15 ML BOTTLE BOTH EYES SCH ×4 (03:09→15:34)
[2020-09-15 04:21] LABS: Basophils % 0.2 %; Eosinophils # 0.3 K/mcL (0.0-0.6); Eosinophils % 2.3 %; Hematocrit 27.1 % (35.3-44.9); Immature Granulocytes % 2.5 % (0-4); Lymphocytes # 0.8 K/mcL (0.6-4.6); Lymphocytes % 5.7 %; Mean Corpuscular HGB Conc 31.4 g/dL (31.6-35.5); Mean Corpuscular Volume 89.1 fL (83.0-100.0); Mean Platelet Volume 11.1 fL (9.4-12.4); Monocytes # 1.1 K/mcL (0.0-1.3); Monocytes % 7.9 %; Platelet Count 183 K/mcL (140-400); Red Blood Count 3.04 M/mcL (3.82-4.97); Red Cell Distribution Width 15.5 % (11.5-14.5); Segmented Neutrophils % 81.4 %; White Blood Count 13.6 K/mcL (4.3-11.1)
[2020-09-15 04:24] LABS: Hemoglobin 8.5 g/dL (11.5-15.4)
[2020-09-15 04:29] LABS: INR 1.2; Prothrombin Time 14.1 Seconds (9.4-12.1)
[2020-09-15 04:38] LABS: VBG Ionized Calcium 1.24 mmol/L (1.15-1.35)
[2020-09-15 04:46] LABS: ABG Base Excess 2 mEq/L (-2 to 3); ABG HCO3 28 mEq/L (21-27); ABG Oxygen Saturation 98 % (95-98); ABG PCO2 52 mmHg (35-45); ABG PH 7.34 pH Units (7.32-7.45); ABG PO2 110 mmHg (85-104); ABG TCO2 30 mEq/L (20-26); Blood Gas VT 400 cc
[2020-09-15 04:51] LABS: Magnesium 2.1 mg/dL (1.6-2.6); Phosphorous 2.9 mg/dL (2.7-4.5)
[2020-09-15 05:39] LABS: Potassium 3.9 mEq/L (3.5-5.1)
[2020-09-15] MEDS: Pantoprazole 40 MG VIAL IVP SCH ×2 (05:42→17:58)
[2020-09-15] MEDS: Insulin LISPRO 300 UNITS/3 ML VIAL SUBQ SCH ×3 (05:42→18:11)
[2020-09-15] MEDS ORDERED: Potassium Chloride Elixir 20 MEQ/15 ML UDC GTUBE ONE (05:48)
[2020-09-15] MEDS: Chlorhexidine Rinse 15 ML MOUTHWASH MM SCH (07:24)
[2020-09-15] MEDS: FentaNYL (PF) 1,000 MCG/100 ML IV.SOLN IVC SCH (07:24)
[2020-09-15] MEDS: Budesonide/Formoterol 160/4.5 1 PUFF INH IH SCH ×2 (07:37→21:39)
[2020-09-15] MEDS: Vancomycin 1,250 MG/262.5 ML IV.SOLN IVPB SCH (10:00)
[2020-09-15 10:23] LABS: VBG Ionized Calcium 1.26 mmol/L (1.15-1.35)
[2020-09-15 11:10] LABS: Calcium 11.5 mg/dL (8.6-10.3); Phosphorous 2.7 mg/dL (2.7-4.5); Potassium 4.2 mEq/L (3.5-5.1)
[2020-09-15 15:46] LABS: Basophils % 0.2 %; Eosinophils # 0.4 K/mcL (0.0-0.6); Eosinophils % 2.5 %; Hematocrit 26.4 % (35.3-44.9); Hemoglobin 8.4 g/dL (11.5-15.4); Lymphocytes # 1.2 K/mcL (0.6-4.6); Lymphocytes % 8.7 %; Mean Corpuscular HGB Conc 31.8 g/dL (31.6-35.5); Mean Corpuscular Hemoglobin 28.8 pg (28.0-33.3); Mean Corpuscular Volume 90.4 fL (83.0-100.0); Mean Platelet Volume 10.8 fL (9.4-12.4); Monocytes # 1.1 K/mcL (0.0-1.3); Monocytes % 7.8 %; Neutrophils # 10.8 K/mcL (1.6-8.9); Platelet Count 192 K/mcL (140-400); Red Blood Count 2.92 M/mcL (3.82-4.97); Red Cell Distribution Width 15.5 % (11.5-14.5); Segmented Neutrophils % 78.8 %; White Blood Count 13.7 K/mcL (4.3-11.1)
[2020-09-15] MEDS: Norepinephrine 8 MG in 0.9 % Sodium Chloride 250 ML IVC SCH (16:06)
[2020-09-15 22:07] LABS: VBG Ionized Calcium 1.31 mmol/L (1.15-1.35)
[2020-09-16] MEDS: Insulin LISPRO 300 UNITS/3 ML VIAL SUBQ SCH ×5 (00:04→23:02)
[2020-09-16] MEDS: PrismaSATE BGK 2/0 5,000 ML CRRT SCH ×9 (00:49→21:32)
[2020-09-16] MEDS: Piperacillin/Tazobactam 3.375 GM in 0.9 % Sodium Chloride Mini Bag 100 ML IVPB SCH ×3 (02:47→17:36)
[2020-09-16 03:11] LABS: VBG Ionized Calcium 0.81 mmol/L (1.15-1.35)
[2020-09-16] MEDS: Calcium Chloride 4,000 MG in 0.9 % Sodium Chloride 1,000 ML CRRT SCH ×5 (03:11→22:09)
[2020-09-16] MEDS: *HR* FentaNYL (PF) 100 MCG/2 ML VIAL IVP PRN ×2 (03:19→11:31)
[2020-09-16] MEDS: PrismaSATE BGK 4/2.5 5,000 ML CRRT SCH ×5 (03:21→22:50)
[2020-09-16 03:28] LABS: Basophils % 0.3 %; Eosinophils # 0.4 K/mcL (0.0-0.6); Eosinophils % 2.8 %; Hematocrit 26.5 % (35.3-44.9); Hemoglobin 8.5 g/dL (11.5-15.4); Immature Granulocytes % 1.9 % (0-4); Lymphocytes # 1.2 K/mcL (0.6-4.6); Lymphocytes % 9.2 %; Mean Corpuscular HGB Conc 32.1 g/dL (31.6-35.5); Mean Corpuscular Hemoglobin 28.7 pg (28.0-33.3); Mean Corpuscular Volume 89.5 fL (83.0-100.0); Mean Platelet Volume 11.2 fL (9.4-12.4); Monocytes # 1.2 K/mcL (0.0-1.3); Monocytes % 9.1 %; Neutrophils # 10.1 K/mcL (1.6-8.9); Platelet Count 213 K/mcL (140-400); Red Blood Count 2.96 M/mcL (3.82-4.97); Red Cell Distribution Width 15.7 % (11.5-14.5); Segmented Neutrophils % 76.7 %; White Blood Count 13.1 K/mcL (4.3-11.1)
[2020-09-16 03:30] LABS: Alanine Aminotransferase 16 Units/L (7-52); Albumin 2.5 g/dL (3.5-5.7); Albumin/Globulin Ratio 1.1 (1.1-2.2); Alkaline Phosphatase 61 Units/L (34-104); Aspartate Amino Transferase 18 Units/L (13-39); BUN/Creatinine Ratio 4 (6-26); Bilirubin,Direct 0.3 mg/dL (0.0-0.2); Bilirubin,Indirect 0.4 mg/dL (0.0-1.0); Bilirubin,Total 0.7 mg/dL (0.3-1.0); Blood Urea Nitrogen 4 mg/dL (8-23); Calcium 10.7 mg/dL (8.6-10.3); Carbon Dioxide 30 mEq/L (23-29); Chloride 104 mEq/L (98-107); Globulin 2.2 g/dL (2.4-3.5); Glucose 164 mg/dL (70-105); Magnesium 1.6 mg/dL (1.6-2.6); Osmolality,Calculated 297 (280-300); Phosphorous 1.6 mg/dL (2.7-4.5); Potassium 3.5 mEq/L (3.5-5.1); Sodium 143 mEq/L (136-145); Total Protein 4.7 g/dL (6.4-8.9); eGFR For African Americans > 60 (> 60); eGFR For Non-African Americans 56 (> 60)
[2020-09-16 03:36] LABS: INR 1.3; Prothrombin Time 14.4 Seconds (9.4-12.1)
[2020-09-16 03:38] LABS: Activated Partial Thrombo Time 24.7 Seconds (26.0-36.0)
[2020-09-16 04:17] LABS: VBG Ionized Calcium 1.26 mmol/L (1.15-1.35)
[2020-09-16 04:25] LABS: Calcium 11.8 mg/dL (8.6-10.3); Magnesium 1.6 mg/dL (1.6-2.6); Phosphorous 2.1 mg/dL (2.7-4.5); Potassium 3.5 mEq/L (3.5-5.1)
[2020-09-16] MEDS: Pantoprazole 40 MG VIAL IVP SCH ×2 (06:07→17:37)
[2020-09-16] MEDS: Potassium Phosphate 44 MEQ in 0.9 % Sodium Chloride 250 ML IVPB PRN ×2 (06:27→18:40)
[2020-09-16] MEDS: Potassium Chloride 40 MEQ/200 ML BAG IVPB PRN ×2 (07:50→18:26)
[2020-09-16] MEDS: Vancomycin 1,250 MG/262.5 ML IV.SOLN IVPB SCH (09:15)
[2020-09-16] MEDS: Budesonide/Formoterol 160/4.5 1 PUFF INH IH SCH ×2 (10:03→19:52)
[2020-09-16] MEDS: Norepinephrine 8 MG in 0.9 % Sodium Chloride 250 ML IVC SCH (16:56)
[2020-09-16 17:04] LABS: Magnesium 1.7 mg/dL (1.6-2.6); Phosphorous 2.4 mg/dL (2.7-4.5); Potassium 3.7 mEq/L (3.5-5.1)
[2020-09-16 17:13] LABS: VBG Ionized Calcium 1.28 mmol/L (1.15-1.35)
[2020-09-16 23:06] LABS: VBG Ionized Calcium 1.28 mmol/L (1.15-1.35)
[2020-09-17] MEDS: PrismaSATE BGK 2/0 5,000 ML CRRT SCH ×6 (00:05→13:09)
[2020-09-17] MEDS: Piperacillin/Tazobactam 3.375 GM in 0.9 % Sodium Chloride Mini Bag 100 ML IVPB SCH ×3 (00:55→18:13)
[2020-09-17] MEDS: Calcium Chloride 4,000 MG in 0.9 % Sodium Chloride 1,000 ML CRRT SCH ×4 (01:31→14:29)
[2020-09-17] MEDS: *HR* FentaNYL (PF) 100 MCG/2 ML VIAL IVP PRN ×2 (03:31→12:56)
[2020-09-17] MEDS: PrismaSATE BGK 4/2.5 5,000 ML CRRT SCH ×3 (04:00→14:00)
[2020-09-17 05:04] LABS: Basophils % 0.3 %; Eosinophils # 0.5 K/mcL (0.0-0.6); Eosinophils % 3.7 %; Hematocrit 27.7 % (35.3-44.9); Hemoglobin 8.5 g/dL (11.5-15.4); Immature Granulocytes % 1.6 % (0-4); Lymphocytes # 1.7 K/mcL (0.6-4.6); Lymphocytes % 13.4 %; Mean Corpuscular HGB Conc 30.7 g/dL (31.6-35.5); Mean Corpuscular Hemoglobin 28.3 pg (28.0-33.3); Mean Corpuscular Volume 92.3 fL (83.0-100.0); Monocytes # 1.4 K/mcL (0.0-1.3); Monocytes % 11.3 %; Neutrophils # 8.9 K/mcL (1.6-8.9); Platelet Count 255 K/mcL (140-400); Red Cell Distribution Width 15.9 % (11.5-14.5); Segmented Neutrophils % 69.7 %; White Blood Count 12.7 K/mcL (4.3-11.1)
[2020-09-17 05:23] LABS: BUN/Creatinine Ratio 3 (6-26); Blood Urea Nitrogen 3 mg/dL (8-23); Calcium 12.6 mg/dL (8.6-10.3); Carbon Dioxide 30 mEq/L (23-29); Chloride 105 mEq/L (98-107); Glucose 136 mg/dL (70-105); Magnesium 1.8 mg/dL (1.6-2.6); Osmolality,Calculated 293 (280-300); Phosphorous 2.8 mg/dL (2.7-4.5); Potassium 3.9 mEq/L (3.5-5.1); Sodium 142 mEq/L (136-145); eGFR For African Americans > 60 (> 60); eGFR For Non-African Americans 51 (> 60)
[2020-09-17] MEDS: Insulin LISPRO 300 UNITS/3 ML VIAL SUBQ SCH ×4 (05:29→23:33)
[2020-09-17] MEDS: Pantoprazole 40 MG VIAL IVP SCH (05:45)
[2020-09-17] MEDS: Potassium Phosphate 44 MEQ in 0.9 % Sodium Chloride 250 ML IVPB PRN (05:58)
[2020-09-17] MEDS: Vancomycin 1,250 MG/262.5 ML IV.SOLN IVPB SCH (10:08)
[2020-09-17] MEDS: Budesonide/Formoterol 160/4.5 1 PUFF INH IH SCH ×2 (10:19→19:58)
[2020-09-17 11:16] LABS: VBG Ionized Calcium 1.27 mmol/L (1.15-1.35)
[2020-09-17] MEDS ORDERED: *HR* Dextrose 50 % in Water (Vial) 50 ML VIAL IVP PRN (16:12)
[2020-09-17] MEDS ORDERED: D5% in Water 1,000 ML IVC PRN (16:12)
[2020-09-17] MEDS ORDERED: Naloxone 0.4 MG/ML INJ IVP PRN (16:12)
[2020-09-17] MEDS ORDERED: Potassium Chloride 40 MEQ/200 ML BAG IVPB PRN (16:12)
[2020-09-17] MEDS ORDERED: Calcium Gluconate 1gm/50mL 1 GM/50 ML BAG IVPB PRN ×2 (16:12)
[2020-09-17] MEDS ORDERED: Dextrose Gel 15 GM/37.5 ML TUBE PO PRN ×2 (16:12)
[2020-09-17 18:33] LABS: Basophils % 0.3 %; Eosinophils # 0.5 K/mcL (0.0-0.6); Eosinophils % 3.4 %; Hematocrit 26.8 % (35.3-44.9); Hemoglobin 8.4 g/dL (11.5-15.4); Immature Granulocytes % 1.2 % (0-4); Lymphocytes # 1.9 K/mcL (0.6-4.6); Lymphocytes % 14.4 %; Mean Corpuscular HGB Conc 31.3 g/dL (31.6-35.5); Mean Corpuscular Hemoglobin 28.7 pg (28.0-33.3); Mean Corpuscular Volume 91.5 fL (83.0-100.0); Mean Platelet Volume 10.9 fL (9.4-12.4); Monocytes # 1.4 K/mcL (0.0-1.3); Monocytes % 10.6 %; Neutrophils # 9.2 K/mcL (1.6-8.9); Platelet Count 285 K/mcL (140-400); Red Blood Count 2.93 M/mcL (3.82-4.97); Red Cell Distribution Width 15.5 % (11.5-14.5); Segmented Neutrophils % 70.1 %; White Blood Count 13.1 K/mcL (4.3-11.1)
[2020-09-17] MEDS ORDERED: *HR* Metoprolol 5 MG/5 ML VIAL IVP ONE (18:42)
[2020-09-17 18:53] LABS: Calcium 12.3 mg/dL (8.6-10.3); Potassium 3.9 mEq/L (3.5-5.1)
[2020-09-18] MEDS: Piperacillin/Tazobactam 3.375 GM in 0.9 % Sodium Chloride Mini Bag 100 ML IVPB SCH ×3 (03:26→17:56)
[2020-09-18 03:51] LABS: Basophils # 0.1 K/mcL (0.0-0.2); Basophils % 0.5 %; Eosinophils # 0.4 K/mcL (0.0-0.6); Eosinophils % 3.3 %; Hematocrit 27.5 % (35.3-44.9); Hemoglobin 8.4 g/dL (11.5-15.4); Lymphocytes # 1.8 K/mcL (0.6-4.6); Lymphocytes % 13.8 %; Mean Corpuscular HGB Conc 30.5 g/dL (31.6-35.5); Mean Corpuscular Volume 91.7 fL (83.0-100.0); Mean Platelet Volume 10.7 fL (9.4-12.4); Monocytes # 1.5 K/mcL (0.0-1.3); Monocytes % 11.2 %; Neutrophils # 9.3 K/mcL (1.6-8.9); Platelet Count 306 K/mcL (140-400); Red Cell Distribution Width 15.6 % (11.5-14.5); Segmented Neutrophils % 70.2 %; White Blood Count 13.2 K/mcL (4.3-11.1)
[2020-09-18 04:09] LABS: Calcium 11.7 mg/dL (8.6-10.3); Potassium 4.1 mEq/L (3.5-5.1)
[2020-09-18] MEDS: Insulin LISPRO 300 UNITS/3 ML VIAL SUBQ SCH ×3 (05:12→18:03)
[2020-09-18] MEDS ORDERED: Furosemide 40 MG/4 ML VIAL IVP ONE (09:52)
[2020-09-18] MEDS ORDERED: Vancomycin 1,250 MG/262.5 ML IV.SOLN IVPB SCH (10:00)
[2020-09-18] MEDS: Budesonide/Formoterol 160/4.5 1 PUFF INH IH SCH ×2 (10:55→20:05)
[2020-09-18] MEDS ORDERED: *HR* Heparin 10,000 UNIT/10 ML VIAL IV PRN (12:08)
[2020-09-18] MEDS ORDERED: 0.9 % Sodium Chloride 250 ML IVC PRN (12:08)
[2020-09-18] MEDS ORDERED: 0.9 % Sodium Chloride 1,000 ML PRIME SCH (12:15)
[2020-09-18] MEDS: Albumin 25% 25gram/100mL 25 GM/100 ML IV.SOLN IVPB PRN (14:00)
[2020-09-19] MEDS: Insulin LISPRO 300 UNITS/3 ML VIAL SUBQ SCH ×4 (00:02→17:16)
[2020-09-19] MEDS: Piperacillin/Tazobactam 3.375 GM in 0.9 % Sodium Chloride Mini Bag 100 ML IVPB SCH ×3 (03:22→17:15)
[2020-09-19 03:51] LABS: Basophils % 0.3 %; Eosinophils # 0.4 K/mcL (0.0-0.6); Eosinophils % 3.5 %; Hematocrit 24.8 % (35.3-44.9); Hemoglobin 7.6 g/dL (11.5-15.4); Immature Granulocytes % 0.6 % (0-4); Lymphocytes # 1.7 K/mcL (0.6-4.6); Lymphocytes % 14.4 %; Mean Corpuscular HGB Conc 30.6 g/dL (31.6-35.5); Mean Corpuscular Hemoglobin 28.1 pg (28.0-33.3); Mean Corpuscular Volume 91.9 fL (83.0-100.0); Mean Platelet Volume 10.7 fL (9.4-12.4); Monocytes # 1.4 K/mcL (0.0-1.3); Monocytes % 11.4 %; Neutrophils # 8.4 K/mcL (1.6-8.9); Platelet Count 280 K/mcL (140-400); Red Cell Distribution Width 15.6 % (11.5-14.5); Segmented Neutrophils % 69.8 %
[2020-09-19 04:00] LABS: Calcium 9.8 mg/dL (8.6-10.3); Magnesium 1.6 mg/dL (1.6-2.6); Potassium 3.9 mEq/L (3.5-5.1)
[2020-09-19] MEDS ORDERED: 0.9 % Sodium Chloride 250 ML IVC PRN ×3 (07:34→15:14)
[2020-09-19] MEDS ORDERED: *HR* Heparin 10,000 UNIT/10 ML VIAL IV PRN (07:34)
[2020-09-19] MEDS ORDERED: 0.9 % Sodium Chloride 1,000 ML PRIME SCH ×3 (07:45→15:14)
[2020-09-19] MEDS: Budesonide/Formoterol 160/4.5 1 PUFF INH IH SCH ×2 (09:32→20:09)
[2020-09-19] MEDS ORDERED: Albumin 25% 25gram/100mL 25 GM/100 ML IV.SOLN ONE (10:34)
[2020-09-19] MEDS: Albumin 25% 25gram/100mL 25 GM/100 ML IV.SOLN IVPB PRN (10:36)
[2020-09-19] MEDS ORDERED: Dextrose Gel 15 GM/37.5 ML TUBE PO PRN ×2 (15:14)
[2020-09-19] MEDS ORDERED: Albumin 25% 25gram/100mL 25 GM/100 ML IV.SOLN IVPB PRN (15:14)
[2020-09-19] MEDS ORDERED: *HR* Dextrose 50 % in Water (Vial) 50 ML VIAL IVP PRN (15:14)
[2020-09-19] MEDS ORDERED: D5% in Water 1,000 ML IVC PRN (15:14)
[2020-09-19] MEDS ORDERED: Naloxone 0.4 MG/ML INJ IVP PRN (15:14)
[2020-09-19] MEDS ORDERED: Acetaminophen 325 MG TABLET PO PRN (15:35)
[2020-09-19] MEDS: Artificial Tears SOLN 15 ML BOTTLE BOTH EYES SCH ×2 (15:43→19:38)
[2020-09-19] MEDS: Famotidine 20 MG TABLET PO SCH (17:15)
[2020-09-19] MEDS ORDERED: Piperacillin/Tazobactam 3.375 GM in 0.9 % Sodium Chloride Mini Bag 100 ML IVPB SCH (18:00)
[2020-09-20] MEDS: Insulin LISPRO 300 UNITS/3 ML VIAL SUBQ SCH ×4 (01:43→17:06)
[2020-09-20 03:54] LABS: Basophils % 0.3 %; Eosinophils # 0.4 K/mcL (0.0-0.6); Eosinophils % 3.2 %; Hematocrit 22.7 % (35.3-44.9); Hemoglobin 7.3 g/dL (11.5-15.4); Immature Granulocytes % 0.5 % (0-4); Lymphocytes # 2.2 K/mcL (0.6-4.6); Lymphocytes % 16.7 %; Mean Corpuscular HGB Conc 32.2 g/dL (31.6-35.5); Mean Corpuscular Hemoglobin 28.9 pg (28.0-33.3); Mean Corpuscular Volume 89.7 fL (83.0-100.0); Monocytes # 1.5 K/mcL (0.0-1.3); Monocytes % 11.6 %; Neutrophils # 8.8 K/mcL (1.6-8.9); Platelet Count 249 K/mcL (140-400); Red Blood Count 2.53 M/mcL (3.82-4.97); Red Cell Distribution Width 15.5 % (11.5-14.5); Segmented Neutrophils % 67.7 %
[2020-09-20 03:59] LABS: Albumin 2.9 g/dL (3.5-5.7); Albumin/Globulin Ratio 1.1 (1.1-2.2); Bilirubin,Total 0.4 mg/dL (0.3-1.0); Globulin 2.6 g/dL (2.4-3.5); Magnesium 2.1 mg/dL (1.6-2.6); Phosphorous 3.4 mg/dL (2.7-4.5); Potassium 3.6 mEq/L (3.5-5.1); Total Protein 5.5 g/dL (6.4-8.9)
[2020-09-20] MEDS: Piperacillin/Tazobactam 3.375 GM in 0.9 % Sodium Chloride Mini Bag 100 ML IVPB SCH ×2 (05:30→17:17)
[2020-09-20] MEDS ORDERED: 0.9 % Sodium Chloride 250 ML IVC PRN (05:41)
[2020-09-20] MEDS ORDERED: *HR* Heparin 10,000 UNIT/10 ML VIAL IV PRN (05:41)
[2020-09-20] MEDS ORDERED: 0.9 % Sodium Chloride 1,000 ML PRIME SCH (05:45)
[2020-09-20] MEDS: Aspirin Enteric Coated 81 MG Tablet PO SCH (08:34)
[2020-09-20] MEDS: Famotidine 20 MG TABLET PO SCH (08:35)
[2020-09-20] MEDS: Loratadine 10 MG TABLET PO SCH (08:35)
[2020-09-20] MEDS: Budesonide/Formoterol 160/4.5 1 PUFF INH IH SCH ×2 (09:52→22:04)
[2020-09-20] MEDS: Artificial Tears SOLN 15 ML BOTTLE BOTH EYES SCH ×3 (10:24→21:48)
[2020-09-20] MEDS ORDERED: Albumin 25% 25gram/100mL 25 GM/100 ML IV.SOLN IVPB ONE (10:55)
[2020-09-21] MEDS ORDERED: *HR* Heparin 10,000 UNIT/10 ML VIAL IV PRN (00:01)
[2020-09-21] MEDS ORDERED: 0.9 % Sodium Chloride 250 ML IVC PRN (00:01)
[2020-09-21] MEDS: Insulin LISPRO 300 UNITS/3 ML VIAL SUBQ SCH ×4 (00:32→16:48)
[2020-09-21 03:59] LABS: Mean Corpuscular HGB Conc 30.4 g/dL (31.6-35.5); Mean Corpuscular Hemoglobin 28.3 pg (28.0-33.3); Mean Corpuscular Volume 93.1 fL (83.0-100.0); Mean Platelet Volume 10.9 fL (9.4-12.4); Platelet Count 243 K/mcL (140-400); Red Blood Count 2.47 M/mcL (3.82-4.97); Red Cell Distribution Width 15.6 % (11.5-14.5)
[2020-09-21 04:20] LABS: Calcium 8.4 mg/dL (8.6-10.3); Potassium 3.5 mEq/L (3.5-5.1)
[2020-09-21] MEDS: Piperacillin/Tazobactam 3.375 GM in 0.9 % Sodium Chloride Mini Bag 100 ML IVPB SCH ×2 (04:40→16:52)
[2020-09-21] MEDS: Artificial Tears SOLN 15 ML BOTTLE BOTH EYES SCH ×3 (07:47→20:01)
[2020-09-21] MEDS: Loratadine 10 MG TABLET PO SCH (07:48)
[2020-09-21] MEDS: Famotidine 20 MG TABLET PO SCH (07:48)
[2020-09-21] MEDS: Aspirin Enteric Coated 81 MG Tablet PO SCH (07:48)
[2020-09-21] MEDS: Budesonide/Formoterol 160/4.5 1 PUFF INH IH SCH ×2 (10:25→20:04)
[2020-09-22 03:20] LABS: Basophils # 0.1 K/mcL (0.0-0.2); Basophils % 0.4 %; Eosinophils # 0.4 K/mcL (0.0-0.6); Eosinophils % 2.9 %; Hemoglobin 7.8 g/dL (11.5-15.4); Immature Granulocytes % 0.4 % (0-4); Lymphocytes # 2.7 K/mcL (0.6-4.6); Lymphocytes % 18.9 %; Mean Corpuscular HGB Conc 31.2 g/dL (31.6-35.5); Mean Corpuscular Hemoglobin 28.2 pg (28.0-33.3); Mean Corpuscular Volume 90.3 fL (83.0-100.0); Monocytes # 1.8 K/mcL (0.0-1.3); Monocytes % 12.3 %; Neutrophils # 9.3 K/mcL (1.6-8.9); Platelet Count 278 K/mcL (140-400); Red Blood Count 2.77 M/mcL (3.82-4.97); Red Cell Distribution Width 15.1 % (11.5-14.5); Segmented Neutrophils % 65.1 %; White Blood Count 14.3 K/mcL (4.3-11.1)
[2020-09-22 03:36] LABS: Magnesium 1.8 mg/dL (1.6-2.6); Phosphorous 2.3 mg/dL (2.7-4.5); Potassium 3.5 mEq/L (3.5-5.1)
[2020-09-22] MEDS: Piperacillin/Tazobactam 3.375 GM in 0.9 % Sodium Chloride Mini Bag 100 ML IVPB SCH ×2 (05:03→17:06)
[2020-09-22] MEDS: Insulin LISPRO 300 UNITS/3 ML VIAL SUBQ SCH ×3 (07:17→16:16)
[2020-09-22] MEDS ORDERED: *HR* Heparin 10,000 UNIT/10 ML VIAL IV PRN (07:20)
[2020-09-22] MEDS ORDERED: 0.9 % Sodium Chloride 250 ML IVC PRN (07:20)
[2020-09-22] MEDS: Budesonide/Formoterol 160/4.5 1 PUFF INH IH SCH ×2 (07:23→20:42)
[2020-09-22] MEDS ORDERED: 0.9 % Sodium Chloride 1,000 ML PRIME SCH (07:30)
[2020-09-22] MEDS: Aspirin Enteric Coated 81 MG Tablet PO SCH (07:59)
[2020-09-22] MEDS: Artificial Tears SOLN 15 ML BOTTLE BOTH EYES SCH ×3 (07:59→19:26)
[2020-09-22] MEDS: Loratadine 10 MG TABLET PO SCH (07:59)
[2020-09-22] MEDS: Famotidine 20 MG TABLET PO SCH (19:26)
[2020-09-23 03:04] LABS: Basophils # 0.1 K/mcL (0.0-0.2); Basophils % 0.6 %; Eosinophils # 0.4 K/mcL (0.0-0.6); Eosinophils % 2.4 %; Hematocrit 27.6 % (35.3-44.9); Hemoglobin 8.6 g/dL (11.5-15.4); Immature Granulocytes % 0.4 % (0-4); Lymphocytes # 2.3 K/mcL (0.6-4.6); Lymphocytes % 14.7 %; Mean Corpuscular HGB Conc 31.2 g/dL (31.6-35.5); Mean Corpuscular Hemoglobin 28.2 pg (28.0-33.3); Mean Corpuscular Volume 90.5 fL (83.0-100.0); Mean Platelet Volume 10.5 fL (9.4-12.4); Monocytes # 1.8 K/mcL (0.0-1.3); Monocytes % 11.3 %; Platelet Count 276 K/mcL (140-400); Red Blood Count 3.05 M/mcL (3.82-4.97); Red Cell Distribution Width 14.9 % (11.5-14.5); Segmented Neutrophils % 70.6 %; White Blood Count 15.6 K/mcL (4.3-11.1)
[2020-09-23 03:17] LABS: Calcium 7.5 mg/dL (8.6-10.3); Magnesium 1.8 mg/dL (1.6-2.6); Phosphorous 3.4 mg/dL (2.7-4.5); Potassium 3.7 mEq/L (3.5-5.1)
[2020-09-23 03:18] LABS: % Iron Saturation 10 % (15-50); Iron 17 mcg/dL (50-170); Transferrin 118 mg/dL (203-362)
[2020-09-23 03:37] LABS: Ferritin 263 ng/mL (10-120)
[2020-09-23] MEDS: Piperacillin/Tazobactam 3.375 GM in 0.9 % Sodium Chloride Mini Bag 100 ML IVPB SCH ×2 (04:55→17:23)
[2020-09-23] MEDS ORDERED: Albumin 25% 25gram/100mL 25 GM/100 ML IV.SOLN IVPB PRN (07:14)
[2020-09-23] MEDS ORDERED: 0.9 % Sodium Chloride 250 ML IVC PRN (07:14)
[2020-09-23] MEDS: Insulin LISPRO 300 UNITS/3 ML VIAL SUBQ SCH ×3 (07:35→16:41)
[2020-09-23] MEDS: Loratadine 10 MG TABLET PO SCH (07:39)
[2020-09-23] MEDS: Aspirin Enteric Coated 81 MG Tablet PO SCH (07:39)
[2020-09-23] MEDS: Budesonide/Formoterol 160/4.5 1 PUFF INH IH SCH ×2 (08:22→20:09)
[2020-09-23] MEDS: Artificial Tears SOLN 15 ML BOTTLE BOTH EYES SCH ×3 (09:44→22:09)
[2020-09-23] MEDS: Famotidine 20 MG TABLET PO SCH (22:08)
[2020-09-24 04:41] LABS: Basophils # 0.1 K/mcL (0.0-0.2); Basophils % 0.4 %; Eosinophils # 0.5 K/mcL (0.0-0.6); Eosinophils % 3.3 %; Hematocrit 26.8 % (35.3-44.9); Hemoglobin 8.4 g/dL (11.5-15.4); Immature Granulocytes % 0.4 % (0-4); Lymphocytes % 12.7 %; Mean Corpuscular HGB Conc 31.3 g/dL (31.6-35.5); Mean Corpuscular Hemoglobin 29.1 pg (28.0-33.3); Mean Corpuscular Volume 92.7 fL (83.0-100.0); Mean Platelet Volume 10.2 fL (9.4-12.4); Monocytes # 1.8 K/mcL (0.0-1.3); Monocytes % 11.1 %; Neutrophils # 11.4 K/mcL (1.6-8.9); Platelet Count 286 K/mcL (140-400); Red Blood Count 2.89 M/mcL (3.82-4.97); Segmented Neutrophils % 72.1 %; White Blood Count 15.8 K/mcL (4.3-11.1)
[2020-09-24 04:58] LABS: Calcium 8.3 mg/dL (8.6-10.3); Magnesium 1.9 mg/dL (1.6-2.6); Phosphorous 3.3 mg/dL (2.7-4.5); Potassium 3.9 mEq/L (3.5-5.1)
[2020-09-24] MEDS ORDERED: Acetaminophen 325 MG TABLET PO PRN (05:07)
[2020-09-24] MEDS: Piperacillin/Tazobactam 3.375 GM in 0.9 % Sodium Chloride Mini Bag 100 ML IVPB SCH ×2 (05:45→17:55)
[2020-09-24] MEDS: Insulin LISPRO 300 UNITS/3 ML VIAL SUBQ SCH ×3 (07:06→16:11)
[2020-09-24] MEDS: Loratadine 10 MG TABLET PO SCH (07:29)
[2020-09-24] MEDS: Artificial Tears SOLN 15 ML BOTTLE BOTH EYES SCH ×3 (07:29→20:16)
[2020-09-24] MEDS: Aspirin Enteric Coated 81 MG Tablet PO SCH (07:29)
[2020-09-24] MEDS: Budesonide/Formoterol 160/4.5 1 PUFF INH IH SCH ×2 (11:22→20:19)
[2020-09-24] MEDS: Famotidine 20 MG TABLET PO SCH (20:07)
[2020-09-25 03:44] LABS: Basophils # 0.1 K/mcL (0.0-0.2); Basophils % 0.5 %; Eosinophils % 7.2 %; Hematocrit 26.1 % (35.3-44.9); Hemoglobin 8.1 g/dL (11.5-15.4); Immature Granulocytes % 0.5 % (0-4); Lymphocytes # 1.7 K/mcL (0.6-4.6); Lymphocytes % 12.1 %; Mean Corpuscular Hemoglobin 29.1 pg (28.0-33.3); Mean Corpuscular Volume 93.9 fL (83.0-100.0); Mean Platelet Volume 10.6 fL (9.4-12.4); Monocytes # 1.5 K/mcL (0.0-1.3); Monocytes % 11.1 %; Neutrophils # 9.4 K/mcL (1.6-8.9); Platelet Count 302 K/mcL (140-400); Red Blood Count 2.78 M/mcL (3.82-4.97); Red Cell Distribution Width 15.3 % (11.5-14.5); Segmented Neutrophils % 68.6 %; White Blood Count 13.7 K/mcL (4.3-11.1)
[2020-09-25 03:56] LABS: Calcium 8.1 mg/dL (8.6-10.3); Phosphorous 4.4 mg/dL (2.7-4.5); Potassium 3.9 mEq/L (3.5-5.1)
[2020-09-25] MEDS: Piperacillin/Tazobactam 3.375 GM in 0.9 % Sodium Chloride Mini Bag 100 ML IVPB SCH (06:17)
[2020-09-25] MEDS: Budesonide/Formoterol 160/4.5 1 PUFF INH IH SCH ×2 (07:27→19:54)
[2020-09-25] MEDS ORDERED: 0.9 % Sodium Chloride 250 ML IVC PRN (07:34)
[2020-09-25] MEDS: Artificial Tears SOLN 15 ML BOTTLE BOTH EYES SCH ×3 (07:35→21:00)
[2020-09-25] MEDS: Aspirin Enteric Coated 81 MG Tablet PO SCH (07:36)
[2020-09-25] MEDS: Insulin LISPRO 300 UNITS/3 ML VIAL SUBQ SCH ×3 (07:36→16:46)
[2020-09-25] MEDS: Loratadine 10 MG TABLET PO SCH (07:36)
[2020-09-25] MEDS ORDERED: 0.9 % Sodium Chloride 1,000 ML PRIME SCH (07:45)
[2020-09-25] MEDS ORDERED: Ferumoxytol 510 MG in 0.9 % Sodium Chloride 100 ML IVPB ONE (10:41)
[2020-09-25] MEDS ORDERED: Acetaminophen 325 MG TABLET PO PRN (12:20)
[2020-09-25] MEDS ORDERED: *HR* Heparin 10,000 UNIT/10 ML VIAL ONE (12:20)
[2020-09-25] MEDS: Famotidine 20 MG TABLET PO SCH (21:53)
[2020-09-26 04:04] LABS: Basophils # 0.1 K/mcL (0.0-0.2); Basophils % 0.6 %; Hematocrit 27.2 % (35.3-44.9); Hemoglobin 8.3 g/dL (11.5-15.4); Lymphocytes # 2.6 K/mcL (0.6-4.6); Lymphocytes % 18.9 %; Mean Corpuscular HGB Conc 30.5 g/dL (31.6-35.5); Mean Corpuscular Volume 91.9 fL (83.0-100.0); Mean Platelet Volume 10.7 fL (9.4-12.4); Monocytes # 1.7 K/mcL (0.0-1.3); Monocytes % 12.7 %; Neutrophils # 8.1 K/mcL (1.6-8.9); Platelet Count 332 K/mcL (140-400); Red Blood Count 2.96 M/mcL (3.82-4.97); Red Cell Distribution Width 15.1 % (11.5-14.5); Segmented Neutrophils % 59.8 %; White Blood Count 13.6 K/mcL (4.3-11.1)
[2020-09-26 04:21] LABS: Calcium 8.6 mg/dL (8.6-10.3); Magnesium 1.9 mg/dL (1.6-2.6); Phosphorous 2.6 mg/dL (2.7-4.5); Potassium 3.5 mEq/L (3.5-5.1)
[2020-09-26] MEDS: Budesonide/Formoterol 160/4.5 1 PUFF INH IH SCH ×2 (07:57→19:30)
[2020-09-26] MEDS ORDERED: Clindamycin 600 MG/50 ML 600 MG/50 ML IV.SOLN IVPB ONE (08:30)
[2020-09-26] MEDS ORDERED: 0.9 % Sodium Chloride 500 ML ONE (09:07)
[2020-09-26] MEDS: Insulin LISPRO 300 UNITS/3 ML VIAL SUBQ SCH ×3 (09:26→16:27)
[2020-09-26] MEDS ORDERED: *HR* Heparin 5,000 UNIT/ML VIAL ONE (09:37)
[2020-09-26] MEDS: Loratadine 10 MG TABLET PO SCH (11:26)
[2020-09-26] MEDS: Artificial Tears SOLN 15 ML BOTTLE BOTH EYES SCH ×3 (11:27→21:07)
[2020-09-26] MEDS: Famotidine 20 MG TABLET PO SCH (21:07)
[2020-09-27] MEDS ORDERED: 0.9 % Sodium Chloride 250 ML IVC PRN (07:05)
[2020-09-27] MEDS: Budesonide/Formoterol 160/4.5 1 PUFF INH IH SCH ×2 (07:37→20:21)
[2020-09-27] MEDS: Insulin LISPRO 300 UNITS/3 ML VIAL SUBQ SCH ×3 (08:00→18:33)
[2020-09-27] MEDS: Loratadine 10 MG TABLET PO SCH (09:18)
[2020-09-27] MEDS: Artificial Tears SOLN 15 ML BOTTLE BOTH EYES SCH ×3 (09:20→20:35)
[2020-09-27 09:57] LABS: Basophils # 0.2 K/mcL (0.0-0.2); Eosinophils # 0.7 K/mcL (0.0-0.6); Eosinophils % 4.9 %; Hematocrit 29.6 % (35.3-44.9); Hemoglobin 9.2 g/dL (11.5-15.4); Immature Granulocytes % 2.6 % (0-4); Lymphocytes # 2.4 K/mcL (0.6-4.6); Lymphocytes % 15.9 %; Mean Corpuscular HGB Conc 31.1 g/dL (31.6-35.5); Mean Corpuscular Hemoglobin 28.1 pg (28.0-33.3); Mean Corpuscular Volume 90.5 fL (83.0-100.0); Mean Platelet Volume 10.7 fL (9.4-12.4); Monocytes # 1.7 K/mcL (0.0-1.3); Monocytes % 11.1 %; Neutrophils # 9.8 K/mcL (1.6-8.9); Platelet Count 380 K/mcL (140-400); Red Blood Count 3.27 M/mcL (3.82-4.97); Red Cell Distribution Width 15.4 % (11.5-14.5); Segmented Neutrophils % 64.5 %; White Blood Count 15.1 K/mcL (4.3-11.1)
[2020-09-27 10:13] LABS: Calcium 9.3 mg/dL (8.6-10.3); Phosphorous 2.9 mg/dL (2.7-4.5); Potassium 3.8 mEq/L (3.5-5.1)
[2020-09-27] MEDS: Famotidine 20 MG TABLET PO SCH (20:34)
[2020-09-28 02:16] LABS: Basophils # 0.2 K/mcL (0.0-0.2); Basophils % 1.3 %; Eosinophils # 0.6 K/mcL (0.0-0.6); Eosinophils % 3.9 %; Hematocrit 30.6 % (35.3-44.9); Hemoglobin 9.7 g/dL (11.5-15.4); Lymphocytes # 2.6 K/mcL (0.6-4.6); Lymphocytes % 16.2 %; Mean Corpuscular HGB Conc 31.7 g/dL (31.6-35.5); Mean Corpuscular Volume 91.6 fL (83.0-100.0); Mean Platelet Volume 10.6 fL (9.4-12.4); Monocytes # 1.7 K/mcL (0.0-1.3); Monocytes % 10.6 %; Neutrophils # 10.2 K/mcL (1.6-8.9); Nucleated Red Blood Cells 0.1 /100 WBC (0); Platelet Count 349 K/mcL (140-400); Red Blood Count 3.34 M/mcL (3.82-4.97); Red Cell Distribution Width 15.2 % (11.5-14.5); White Blood Count 15.9 K/mcL (4.3-11.1)
[2020-09-28 02:30] LABS: Magnesium 1.8 mg/dL (1.6-2.6); Phosphorous 2.4 mg/dL (2.7-4.5)
[2020-09-28] MEDS: Insulin LISPRO 300 UNITS/3 ML VIAL SUBQ SCH ×3 (08:04→17:08)
[2020-09-28] MEDS: Aspirin Enteric Coated 81 MG Tablet PO SCH (08:30)
[2020-09-28] MEDS: Loratadine 10 MG TABLET PO SCH (08:31)
[2020-09-28] MEDS: Artificial Tears SOLN 15 ML BOTTLE BOTH EYES SCH ×3 (09:00→21:48)
[2020-09-28] MEDS: Budesonide/Formoterol 160/4.5 1 PUFF INH IH SCH ×2 (10:32→19:48)
[2020-09-28] MEDS ORDERED: Metoprolol XL (24 HR) Succ 25 MG TAB.ER.24H PO SCH (14:00)
[2020-09-28] MEDS: Famotidine 20 MG TABLET PO SCH (20:46)
[2020-09-29 02:56] LABS: Hematocrit 31.2 % (35.3-44.9); Hemoglobin 9.8 g/dL (11.5-15.4); Mean Corpuscular HGB Conc 31.4 g/dL (31.6-35.5); Mean Corpuscular Hemoglobin 28.7 pg (28.0-33.3); Mean Corpuscular Volume 91.5 fL (83.0-100.0); Mean Platelet Volume 10.8 fL (9.4-12.4); Nucleated Red Blood Cells 0.1 /100 WBC (0); Platelet Count 389 K/mcL (140-400); Red Blood Count 3.41 M/mcL (3.82-4.97); Red Cell Distribution Width 15.6 % (11.5-14.5); White Blood Count 18.5 K/mcL (4.3-11.1)
[2020-09-29 03:20] LABS: Calcium 9.4 mg/dL (8.6-10.3); Magnesium 1.9 mg/dL (1.6-2.6); Phosphorous 2.7 mg/dL (2.7-4.5); Potassium 3.7 mEq/L (3.5-5.1)
[2020-09-29 03:33] LABS: Eosinophils # 1.1 K/mcL (0.0-0.6); Monocytes # 0.4 K/mcL (0.0-1.3); Neutrophils # 12.2 K/mcL (1.6-8.9); Platelet Estimate Normal (Normal); Polychromasia 1+ (Not Present)
[2020-09-29 03:34] LABS: Anisocytosis 1+ (Not Present); Toxic Granulation Present (Not Present)
[2020-09-29] MEDS: Aspirin Enteric Coated 81 MG Tablet PO SCH (07:53)
[2020-09-29] MEDS: Loratadine 10 MG TABLET PO SCH (07:54)
[2020-09-29] MEDS: Artificial Tears SOLN 15 ML BOTTLE BOTH EYES SCH ×3 (07:55→20:10)
[2020-09-29] MEDS: Insulin LISPRO 300 UNITS/3 ML VIAL SUBQ SCH ×3 (07:55→16:37)
[2020-09-29] MEDS: Budesonide/Formoterol 160/4.5 1 PUFF INH IH SCH ×2 (10:05→22:16)
[2020-09-29] MEDS: Metoprolol XL (24 HR) Succ 25 MG TAB.ER.24H PO SCH ×2 (12:37→18:32)
[2020-09-29] MEDS ORDERED: Vancomycin 1,500 MG/265 ML IV.SOLN IVPB ONE (20:00)
[2020-09-29] MEDS ORDERED: Cefepime HCl 2,000 MG in 0.9 % Sodium Chloride Mini Bag 100 ML IVPB SCH (20:00)
[2020-09-29] MEDS: Famotidine 20 MG TABLET PO SCH (20:10)
[2020-09-29] MEDS ORDERED: Acetaminophen IV 1,000 MG/100 ML BAG IVPB ONE (23:47)
[2020-09-29] MEDS: MetroNIDAZOLE 500 MG/100 ML 500 MG/100 ML BAG IVPB SCH (23:53)
[2020-09-30 03:04] LABS: Hemoglobin 10.5 g/dL (11.5-15.4); Nucleated Red Blood Cells 0.2 /100 WBC (0)
[2020-09-30 03:07] LABS: Basophils # 0.3 K/mcL (0.0-0.2); Basophils % 1.7 %; Eosinophils # 0.3 K/mcL (0.0-0.6); Eosinophils % 1.3 %; Hematocrit 34.4 % (35.3-44.9); Immature Granulocytes % 7.8 % (0-4); Immature Platelets 7.7 % (1.1-6.1); Lymphocytes # 2.8 K/mcL (0.6-4.6); Lymphocytes % 14.1 %; Mean Corpuscular HGB Conc 30.5 g/dL (31.6-35.5); Mean Corpuscular Hemoglobin 28.1 pg (28.0-33.3); Mean Platelet Volume 11.4 fL (9.4-12.4); Monocytes % 10.3 %; Neutrophils # 12.8 K/mcL (1.6-8.9); Platelet Count 358 K/mcL (140-400); Red Blood Count 3.74 M/mcL (3.82-4.97); Red Cell Distribution Width 15.9 % (11.5-14.5); Segmented Neutrophils % 64.8 %; White Blood Count 19.8 K/mcL (4.3-11.1)
[2020-09-30 03:19] LABS: Calcium 9.4 mg/dL (8.6-10.3); Phosphorous 2.9 mg/dL (2.7-4.5); Potassium 4.4 mEq/L (3.5-5.1)
[2020-09-30 04:06] LABS: Anisocytosis 1+ (Not Present); Platelet Estimate Normal (Normal); Poikilocytosis 1+ (Not Present); Polychromasia 1+ (Not Present)
[2020-09-30 04:07] LABS: Toxic Vacuolation Present (Not Present)
[2020-09-30] MEDS: Budesonide/Formoterol 160/4.5 1 PUFF INH IH SCH ×2 (07:24→19:51)
[2020-09-30] MEDS: Insulin LISPRO 300 UNITS/3 ML VIAL SUBQ SCH ×3 (09:13→16:16)
[2020-09-30] MEDS: Aspirin Enteric Coated 81 MG Tablet PO SCH (09:13)
[2020-09-30] MEDS: Metoprolol XL (24 HR) Succ 25 MG TAB.ER.24H PO SCH ×4 (09:13→22:18)
[2020-09-30] MEDS: Loratadine 10 MG TABLET PO SCH (09:13)
[2020-09-30] MEDS: Artificial Tears SOLN 15 ML BOTTLE BOTH EYES SCH ×3 (09:14→21:05)
[2020-09-30] MEDS: MetroNIDAZOLE 500 MG/100 ML 500 MG/100 ML BAG IVPB SCH ×3 (09:14→23:49)
[2020-09-30 10:12] LABS: Bilirubin,Urine Moderate (Negative); Blood,Urine Large (Negative); Clarity,Urine Turbid (Clear); Color,Urine Brown (Yellow); Glucose,Urine (UA) Normal (Normal); Ketones,Urine 15 mg/dL (Negative); Leukocyte Esterase,Urine Large (Negative); Nitrite,Urine Negative (Negative); Protein,Urine >=300 mg/dL (Neg-Trace); Specific Gravity,Urine 1.025 (1.010-1.025); Urobilinogen,Urine Normal (Normal)
[2020-09-30 16:27] LABS: C.difficile Toxin A/B Gene PCR Not detected (Not detect); Campylobacter by PCR Not detected (Not detect); Cryptosporidium by PCR Not detected (Not detect); Cyclospora cayetanensis PCR Not detected (Not detect); E. coli O157 by PCR Not detected (Not detect); Entamoeba histolytica PCR Not detected (Not detect); Enteroaggregative E.coli(EAEC) Not detected (Not detect); Enteropathogenic E.coli(EPEC) Not detected (Not detect); Enterotoxigenic E.coli (ETEC) Not detected (Not detect); Plesiomonas shigelloides PCR Not detected (Not detect); Salmonella PCR Not detected (Not detect); Shig/EnteroinvasiveE coli EIEC Not detected (Not detect); Shigalike tox-prod E coli STEC Not detected (Not detect); Vibrio PCR Not detected (Not detect); Vibrio cholerae PCR Not detected (Not detect); Yersinia enterocolitica PCR Not detected (Not detect)
[2020-09-30 16:28] LABS: Adenovirus F 40/41 PCR Not detected (Not detect); Astrovirus PCR Not detected (Not detect); Giardia lamblia PCR Not detected (Not detect); Norovirus GI/GII PCR Not detected (Not detect); Rotavirus A PCR Not detected (Not detect); Sapovirus PCR Not detected (Not detect)
[2020-09-30] MEDS: Famotidine 20 MG TABLET PO SCH ×2 (21:05→21:13)
[2020-09-30] MEDS ORDERED: Acetaminophen IV 1,000 MG/100 ML BAG IVPB ONE (22:16)
[2020-10-01 02:00] LABS: Hematocrit 31.7 % (35.3-44.9); Hemoglobin 9.8 g/dL (11.5-15.4); Mean Corpuscular HGB Conc 30.9 g/dL (31.6-35.5); Mean Corpuscular Hemoglobin 28.1 pg (28.0-33.3); Mean Corpuscular Volume 90.8 fL (83.0-100.0); Mean Platelet Volume 10.8 fL (9.4-12.4); Nucleated Red Blood Cells 0.1 /100 WBC (0); Platelet Count 396 K/mcL (140-400); Red Blood Count 3.49 M/mcL (3.82-4.97); Red Cell Distribution Width 16.2 % (11.5-14.5); White Blood Count 20.3 K/mcL (4.3-11.1)
[2020-10-01 02:21] LABS: Calcium 9.6 mg/dL (8.6-10.3); Phosphorous 4.2 mg/dL (2.7-4.5); Potassium 4.2 mEq/L (3.5-5.1)
[2020-10-01 02:33] LABS: Neutrophils # 16.2 K/mcL (1.6-8.9); Platelet Estimate Normal (Normal); Toxic Granulation Present (Not Present)
[2020-10-01] MEDS: Budesonide/Formoterol 160/4.5 1 PUFF INH IH SCH ×2 (07:40→22:30)
[2020-10-01] MEDS: Aspirin Enteric Coated 81 MG Tablet PO SCH (08:16)
[2020-10-01] MEDS: Acetaminophen IV 500 MG/50 ML BAG IVPB SCH ×3 (08:16→19:52)
[2020-10-01] MEDS: Loratadine 10 MG TABLET PO SCH (08:16)
[2020-10-01] MEDS: Metoprolol XL (24 HR) Succ 25 MG TAB.ER.24H PO SCH ×2 (08:16→19:53)
[2020-10-01] MEDS: MetroNIDAZOLE 500 MG/100 ML 500 MG/100 ML BAG IVPB SCH ×2 (08:17→15:42)
[2020-10-01] MEDS: Artificial Tears SOLN 15 ML BOTTLE BOTH EYES SCH ×3 (08:18→19:54)
[2020-10-01] MEDS: Insulin LISPRO 300 UNITS/3 ML VIAL SUBQ SCH ×3 (08:30→15:27)
[2020-10-01] MEDS: Famotidine 20 MG TABLET PO SCH (19:53)
[2020-10-02] MEDS: MetroNIDAZOLE 500 MG/100 ML 500 MG/100 ML BAG IVPB SCH ×2 (00:19→08:42)
[2020-10-02 06:36] LABS: Mean Corpuscular Hemoglobin 28.2 pg (28.0-33.3); Nucleated Red Blood Cells 0.2 /100 WBC (0)
[2020-10-02 06:39] LABS: Basophils # 0.3 K/mcL (0.0-0.2); Basophils % 1.3 %; Eosinophils # 0.8 K/mcL (0.0-0.6); Eosinophils % 3.2 %; Hematocrit 30.3 % (35.3-44.9); Hemoglobin 9.5 g/dL (11.5-15.4); Immature Granulocytes % 5.2 % (0-4); Immature Platelets 7.5 % (1.1-6.1); Lymphocytes # 2.6 K/mcL (0.6-4.6); Lymphocytes % 9.9 %; Mean Corpuscular HGB Conc 31.4 g/dL (31.6-35.5); Mean Corpuscular Volume 89.9 fL (83.0-100.0); Mean Platelet Volume 11.2 fL (9.4-12.4); Monocytes # 1.9 K/mcL (0.0-1.3); Monocytes % 7.3 %; Platelet Count 343 K/mcL (140-400); Red Blood Count 3.37 M/mcL (3.82-4.97); Red Cell Distribution Width 16.6 % (11.5-14.5); Segmented Neutrophils % 73.1 %; White Blood Count 25.8 K/mcL (4.3-11.1)
[2020-10-02 06:44] LABS: Neutrophils # 18.9 K/mcL (1.6-8.9)
[2020-10-02] MEDS: Acetaminophen IV 500 MG/50 ML BAG IVPB SCH ×4 (06:53→20:46)
[2020-10-02 07:07] LABS: Anisocytosis 1+ (Not Present); Polychromasia 1+ (Not Present); Toxic Granulation Present (Not Present)
[2020-10-02 07:08] LABS: Platelet Estimate Normal (Normal)
[2020-10-02 07:10] LABS: Calcium 9.4 mg/dL (8.6-10.3); Magnesium 2.1 mg/dL (1.6-2.6); Phosphorous 4.6 mg/dL (2.7-4.5); Potassium 4.3 mEq/L (3.5-5.1)
[2020-10-02] MEDS ORDERED: *HR* Heparin 10,000 UNIT/10 ML VIAL IV PRN (07:50)
[2020-10-02] MEDS ORDERED: 0.9 % Sodium Chloride 250 ML IVC PRN (07:50)
[2020-10-02] MEDS ORDERED: 0.9 % Sodium Chloride 1,000 ML PRIME SCH (08:00)
[2020-10-02] MEDS: Budesonide/Formoterol 160/4.5 1 PUFF INH IH SCH ×2 (08:08→19:52)
[2020-10-02] MEDS ORDERED: Piperacillin/Tazobactam 3.375 GM in 0.9 % Sodium Chloride Mini Bag 100 ML IVPB SCH (08:29)
[2020-10-02] MEDS: Insulin LISPRO 300 UNITS/3 ML VIAL SUBQ SCH ×3 (08:40→16:33)
[2020-10-02] MEDS: Artificial Tears SOLN 15 ML BOTTLE BOTH EYES SCH ×3 (08:43→20:47)
[2020-10-02] MEDS: Aspirin Enteric Coated 81 MG Tablet PO SCH (08:44)
[2020-10-02] MEDS: Loratadine 10 MG TABLET PO SCH (08:44)
[2020-10-02] MEDS: Meropenem 500 MG in 0.9 % Sodium Chloride Mini Bag 100 ML IVPB SCH (13:15)
[2020-10-02] MEDS: Metoprolol XL (24 HR) Succ 25 MG TAB.ER.24H PO SCH ×2 (13:15→21:02)
[2020-10-02] MEDS: Famotidine 20 MG TABLET PO SCH (21:02)
[2020-10-03] MEDS: Acetaminophen IV 500 MG/50 ML BAG IVPB SCH ×4 (01:15→20:36)
[2020-10-03 04:50] LABS: Lymphocytes % 10.6 %; Nucleated Red Blood Cells 0.2 /100 WBC (0)
[2020-10-03 04:51] LABS: Basophils # 0.4 K/mcL (0.0-0.2); Basophils % 1.2 %; Eosinophils # 0.4 K/mcL (0.0-0.6); Hematocrit 31.6 % (35.3-44.9); Hemoglobin 9.9 g/dL (11.5-15.4); Immature Granulocytes % 6.8 % (0-4); Lymphocytes # 3.8 K/mcL (0.6-4.6); Mean Corpuscular HGB Conc 31.3 g/dL (31.6-35.5); Mean Corpuscular Hemoglobin 28.9 pg (28.0-33.3); Mean Corpuscular Volume 92.1 fL (83.0-100.0); Monocytes # 2.3 K/mcL (0.0-1.3); Monocytes % 6.4 %; Neutrophils # 26.3 K/mcL (1.6-8.9); Platelet Count 442 K/mcL (140-400); Red Blood Count 3.43 M/mcL (3.82-4.97); Red Cell Distribution Width 17.2 % (11.5-14.5)
[2020-10-03 04:56] LABS: White Blood Count 35.5 K/mcL (4.3-11.1)
[2020-10-03 05:02] LABS: Calcium 9.4 mg/dL (8.6-10.3); Phosphorous 3.5 mg/dL (2.7-4.5); Potassium 4.3 mEq/L (3.5-5.1)
[2020-10-03 05:46] LABS: Platelet Estimate Normal (Normal); Toxic Granulation Present (Not Present)
[2020-10-03 05:47] LABS: Anisocytosis 1+ (Not Present); Polychromasia 1+ (Not Present)
[2020-10-03] MEDS: Artificial Tears SOLN 15 ML BOTTLE BOTH EYES SCH ×3 (07:54→20:37)
[2020-10-03] MEDS: Insulin LISPRO 300 UNITS/3 ML VIAL SUBQ SCH ×3 (07:54→16:54)
[2020-10-03] MEDS: Loratadine 10 MG TABLET PO SCH (07:59)
[2020-10-03] MEDS: Aspirin Enteric Coated 81 MG Tablet PO SCH (07:59)
[2020-10-03] MEDS: Metoprolol XL (24 HR) Succ 25 MG TAB.ER.24H PO SCH ×2 (08:00→19:33)
[2020-10-03] MEDS: Budesonide/Formoterol 160/4.5 1 PUFF INH IH SCH ×2 (10:14→20:07)
[2020-10-03] MEDS: Meropenem 500 MG in 0.9 % Sodium Chloride Mini Bag 100 ML IVPB SCH (11:32)
[2020-10-03] MEDS: Famotidine 20 MG TABLET PO SCH (19:33)
[2020-10-03 21:45] LABS: Calcium 9.3 mg/dL (8.6-10.3); Potassium 4.8 mEq/L (3.5-5.1)
[2020-10-04 00:52] LABS: Eosinophils % 0.8 %; Lymphocytes % 7.2 %; Monocytes % 5.6 %; Red Blood Count 3.48 M/mcL (3.82-4.97)
[2020-10-04 00:54] LABS: Basophils # 0.1 K/mcL (0.0-0.2); Basophils % 0.3 %; Eosinophils # 0.3 K/mcL (0.0-0.6); Hematocrit 32.3 % (35.3-44.9); Hemoglobin 9.9 g/dL (11.5-15.4); Immature Granulocytes % 6.6 % (0-4); Lymphocytes # 2.9 K/mcL (0.6-4.6); Mean Corpuscular HGB Conc 30.7 g/dL (31.6-35.5); Mean Corpuscular Hemoglobin 28.4 pg (28.0-33.3); Mean Corpuscular Volume 92.8 fL (83.0-100.0); Mean Platelet Volume 10.9 fL (9.4-12.4); Monocytes # 2.2 K/mcL (0.0-1.3); Nucleated Red Blood Cells 0.3 /100 WBC (0); Platelet Count 455 K/mcL (140-400); Red Cell Distribution Width 17.6 % (11.5-14.5); Segmented Neutrophils % 79.5 %
[2020-10-04 01:03] LABS: Neutrophils # 31.5 K/mcL (1.6-8.9); White Blood Count 39.6 K/mcL (4.3-11.1)
[2020-10-04 01:08] LABS: Calcium 9.5 mg/dL (8.6-10.3); Phosphorous 4.8 mg/dL (2.7-4.5); Potassium 4.6 mEq/L (3.5-5.1)
[2020-10-04] MEDS: Acetaminophen IV 500 MG/50 ML BAG IVPB SCH ×2 (01:32→07:40)
[2020-10-04 01:52] LABS: Anisocytosis 1+ (Not Present); Hypochromasia Present (Not Present); Platelet Estimate Increased (Normal)
[2020-10-04] MEDS ORDERED: *HR* Heparin 10,000 UNIT/10 ML VIAL IV PRN (07:19)
[2020-10-04] MEDS ORDERED: 0.9 % Sodium Chloride 250 ML IVC PRN (07:19)
[2020-10-04] MEDS ORDERED: 0.9 % Sodium Chloride 1,000 ML PRIME SCH (07:30)
[2020-10-04] MEDS: Insulin LISPRO 300 UNITS/3 ML VIAL SUBQ SCH (07:35)
[2020-10-04] MEDS: Artificial Tears SOLN 15 ML BOTTLE BOTH EYES SCH (07:41)
[2020-10-04] MEDS: Aspirin Enteric Coated 81 MG Tablet PO SCH (07:41)
[2020-10-04] MEDS: Metoprolol XL (24 HR) Succ 25 MG TAB.ER.24H PO SCH (07:41)
[2020-10-04] MEDS: Loratadine 10 MG TABLET PO SCH (07:41)
[2020-10-04] MEDS ORDERED: Atropine 1% Opth Drops 100 DROP/5 ML BOTTLE SL PRN (10:45)
[2020-10-04] MEDS ORDERED: *HR* LORazepam Oral Conc 2 MG/ML SL PRN (10:46)
[2020-10-04] MEDS ORDERED: Haloperidol Oral Conc 10 MG/5 ML UDC PO PRN (10:46)
[2020-10-04] MEDS: Budesonide/Formoterol 160/4.5 1 PUFF INH IH SCH ×2 (12:03→22:42)
[2020-10-04] MEDS: Morphine Sulfate Oral CONC 10 MG/0.5 ML ORAL.SYG SL PRN ×2 (14:42→20:43)
[2020-10-05] MEDS: Morphine Sulfate Oral CONC 10 MG/0.5 ML ORAL.SYG SL PRN (04:03)
[2020-10-05] MEDS: Budesonide/Formoterol 160/4.5 1 PUFF INH IH SCH ×2 (07:53→23:01)
[2020-10-05] MEDS ORDERED: Acetaminophen 650 MG RECTAL SUPP RC PRN (13:44)
[2020-10-06 07:00] VITALS: BP 110/56
[2020-10-06] MEDS: Budesonide/Formoterol 160/4.5 1 PUFF INH IH SCH (07:41)
== END 2020-10-06 16:18 | disposition hospice, inpatient (51) | DRG 870 ==
LOC: 2NNU → SUATTDRO 16:25 → ICNU 09-10 11:04 → 2ANU 09-20 15:47
PROVIDERS: ADMIT Internal Medicine; ATTEND Pharmacist
PROC: IRPERMA (2020-09-26 12:00)

== ENCOUNTER 2020-10-06 13:02 | Inpatient (IN) ==
[2020-10-06] MEDS ORDERED: Acetaminophen 325 MG TABLET PO PRN (15:44)
[2020-10-06] MEDS ORDERED: Ondansetron 4 MG/2 ML VIAL IVP PRN (15:44)
[2020-10-06] MEDS ORDERED: Haloperidol Oral Conc 10 MG/5 ML UDC PO PRN ×2 (15:44→15:54)
[2020-10-06] MEDS: Budesonide/Formoterol 160/4.5 1 PUFF INH IH SCH (19:35)
[2020-10-07] MEDS ORDERED: Haloperidol Oral Conc 10 MG/5 ML UDC PO PRN (09:25)
[2020-10-07] MEDS: Budesonide/Formoterol 160/4.5 1 PUFF INH IH SCH (10:24)
[2020-10-07] MEDS ORDERED: Acetaminophen 650 MG RECTAL SUPP RC PRN (10:34)
[2020-10-07] MEDS: *HR* LORazepam Oral Conc 2 MG/ML PO PRN ×2 (12:07→23:38)
[2020-10-08] MEDS: *HR* LORazepam Oral Conc 2 MG/ML PO PRN ×2 (04:56→15:04)
[2020-10-08 09:28] VITALS: BP 90/60
[2020-10-08] MEDS: Atropine 1% Opth Drops 100 DROP/5 ML BOTTLE SL PRN ×2 (15:05→16:31)
== END 2020-10-08 16:38 | disposition expired | DRG 951 ==
LOC: 2ANU 16:20
PROVIDERS: ADMIT Internal Medicine Hospice and Palliative Medicine; ATTEND Internal Medicine Hospice and Palliative Medicine